=== PATIENT | female | born 1990 ===

== ENCOUNTER 2023-01-16 09:52 | Inpatient (IN) ==
[2023-01-16] MEDS ORDERED: OXYTOCIN 30 UNITS/500 ML BAG IV PRN ×2 (10:06→15:38)
[2023-01-16] MEDS ORDERED: LIDOCAINE 1% LOCAL 20 ML VIAL INFIL PRN (10:06)
[2023-01-16] MEDS: LACTATED RINGER'S 1,000 ML IV PRN ×2 (10:25→11:38)
[2023-01-16] MEDS ORDERED: SODIUM CHLORIDE 0.9% PF INJ 10 ML VIAL ONE (10:48)
[2023-01-16] MEDS ORDERED: LIDOCAINE 2%/EPINEPHRINE 1:200,000 20 ML PF ONE (10:48)
[2023-01-16] MEDS ORDERED: fentaNYL citrate PF 100 MCG/2 ML VIAL ONE (10:48)
[2023-01-16] MEDS ORDERED: ePHEDrine sulfate 50 MG/ML AMP ONE (10:48)
[2023-01-16] MEDS ORDERED: BUPIVACAINE 0.25% PF 30 ML VIAL ONE (10:48)
[2023-01-16] MEDS ORDERED: fentaNYL 2MCG/ML ROPIVACAINE 1.25MG/ML 100 ML BAG EPI ONE (10:49)
[2023-01-16 10:59] LABS: Hematocrit (blood only) 39.9 % (37.0-47.0); Hemoglobin 14.2 g/dl (12.0-16.0); Mean Corpuscular Hemoglobin 34.2 pg (25.0-34.0); Mean Corpuscular Hgb Conc 35.6 g/dL (32.0-36.0); Mean Corpuscular Volume 96.1 fL (80.0-100.0); Mean Platelet Volume 10.7 fL (9.4-12.4); Platelet Count 209 K/uL (130-400); RDW Coefficient of Variation 13.1 % (11.5-14.5); RDW Standard Deviation 46.1 fL (36.4-46.3); Red Blood Count 4.15 M/uL (4.20-5.40); White Blood Count 7.07 K/ul (4.8-10.8)
--- NOTE | 2023-01-16 11:08 | Progress Note ---
Date of Service January 16, 2023 Assessment & Plan (1) Encounter for trial of labor: Plan: Trial of labor pt Admitted from office VE; 4cm Bedside sono; VT FHR; CAT1 discussed risk of uterine rupture after c/sec pt wishes to proceeds despite risk Pt admits to Marijuana use told she will need a urine tox pt agrees to all of above admit and anticipate VD Admission and Anticipated Discharge Date Admission Date: January 16, 2023 Results & Data ([facility]) Vital Signs (Past 12 Hours) Vital Signs Temp Pulse Resp BP Pulse Ox 01/16/23 11:01 91 H 92 01/16/23 10:15 18 01/16/23 10:15 18 01/16/23 10:59 79 100 01/16/23 10:54 82 100 01/16/23 10:49 87 100 01/16/23 10:44 82 100 01/16/23 10:34 85 100 01/16/23 10:29 91 H 100 01/16/23 10:24 88 100 01/16/23 10:19 94 H 100 01/16/23 10:14 93 H 100 01/16/23 10:13 93 H 114/82 01/16/23 10:14 37.0 C 18
--- NOTE | 2023-01-16 11:09 | Anesthesiology Consultation ---
Date of Service January 16, 2023 Assessment & Plan (1) Encounter for pre-operative examination: Chart Review Chart Review: Acceptable Risk for Labor Epidural History Height/Weight Height: 5 ft 4 in Weight: 73.936 kg Allergies Allergy/AdvReac Type Severity Reaction Status Date / Time No Known Allergies Allergy Unverified 06/03/22 20:09 Medications Home Medications Medication Instructions Recorded Confirmed Last Taken prenat.vits,jorge,mus-qybl-msmrj 1 tab PO DAILY 01/16/23 01/16/23 01/15/23 Active Medications Generic Name Dose Route Start Last Admin Trade Name Freq PRN Reason Stop Dose Admin Lactated Ringer's 1,000 mls @ 125 mls/hr 01/16/23 10:06 01/16/23 10:25 Lr IV 01/18/23 10:05 999 mls/hr .Q8H PRN Administration L&D Protocol Protocol Past Medical History Medical History (Updated 01/16/23 @ 11:09 by Adriano Garcia MD) No chronic diseases present Past Surgical History Surgical History (Updated 01/16/23 @ 11:09 by Adriano Garcia MD) Hx of section Social History Smoking Status: Current every day smoker Hx Alcohol Use: No Hx Substance Use: Yes (Patient has medical card) substance use type: marijuana Last Used Substance: Days (ago) Last Used Substance Other:: 01/01/23 Physical Exam Vital Signs Last Vital Signs Temp 37.0 C 01/16/23 10:14 Pulse 91 H 01/16/23 11:01 Resp 18 01/16/23 10:15 BP 114/82 01/16/23 10:13 Pulse Ox 92 01/16/23 11:01 Testing Laboratory Results 01/16/23 10:32
[2023-01-16] MEDS ORDERED: NALOXONE HCL 1 MG in SODIUM CHLORIDE 0.9% 1000ML 1,000 ML IV PRN (11:43)
[2023-01-16] MEDS ORDERED: NALOXONE HCL 0.4 MG/1 ML VIAL/CARP IV PRN (11:43)
[2023-01-16] MEDS ORDERED: fentaNYL 2MCG/ML ROPIVACAINE 1.25MG/ML 100 ML BAG EPI PRN (11:43)
[2023-01-16] MEDS ORDERED: ONDANSETRON INJ 2 MG/ML 2 ML VIAL IV PRN (11:43)
[2023-01-16] MEDS ORDERED: ePHEDrine sulfate 50 MG/ML AMP IV PRN (11:43)
[2023-01-16 12:15] LABS: Amphetamines+Metham, Urine Neg (Neg); Barbiturates, Urine Neg (Neg); Benzodiazepine, Urine Neg (Neg); Cocaine, Urine Neg (Neg); MDMA (Ecstacy), Urine Neg (Neg); Methadone, Urine Neg (Neg); Opiate, Urine Neg (Neg); Phencyclidine, Urine Neg (Neg)
--- NOTE | 2023-01-16 13:29 | Obstetrical Progress Note ---
Date of Service January 16, 2023 Assessment & Plan (1) Hx of section: Plan: Pt doing well Epidural analgesia placed FHR; CAT1' Ctx 2-3mins VE; 8-9//-2 with bulging membrane AROM with amnio hook performed-Thick meconium pt informed anticipate VD Admission and Anticipated Discharge Date Admission Date: January 16, 2023 Results & Data ([facility]) Vital Signs (Past 12 Hours) Vital Signs Temp Pulse Resp BP Pulse Ox 01/16/23 13:24 71 100 01/16/23 13:19 74 100 01/16/23 13:14 70 100 01/16/23 11:36 18 01/16/23 11:36 18 01/16/23 11:38 18 01/16/23 11:38 18 01/16/23 11:40 18 01/16/23 11:40 18 01/16/23 11:42 18 01/16/23 11:42 18 01/16/23 11:00 18 01/16/23 11:00 18 01/16/23 13:09 75 100 01/16/23 13:06 94 H 97/59 L 01/16/23 12:59 88 98 01/16/23 13:00 92 H 87 L 01/16/23 12:54 66 99 01/16/23 12:49 68 99 01/16/23 12:50 66 97/53 L 01/16/23 12:44 67 97 01/16/23 12:39 81 97 01/16/23 12:35 67 106/57 L 01/16/23 12:34 91 H 99 01/16/23 12:29 107 H 96 01/16/23 12:24 78 98 01/16/23 12:19 98 H 100 01/16/23 12:20 99 H 103/59 L 01/16/23 12:14 104 H 100 01/16/23 12:09 102 H 99 01/16/23 12:04 99 01/16/23 12:04 100 H 01/16/23 12:03 94 H 93 01/16/23 12:04 94 H 110/55 L 01/16/23 11:59 104 H 94/53 L 99 01/16/23 11:57 104 H 97/52 L 01/16/23 11:54 110 H 100 01/16/23 11:55 85 101/59 L 01/16/23 11:53 86 102/54 L 01/16/23 11:51 112 H 98/52 L 01/16/23 11:49 92 H 100 01/16/23 11:48 109 H 100/53 L 01/16/23 11:45 98 H 18 95/50 L 01/16/23 11:44 97 H 18 100 01/16/23 11:43 99 H 94/53 L 01/16/23 11:41 105 H 105/59 L 01/16/23 11:39 70 98/55 L 99 01/16/23 11:37 80 82/44 L 01/16/23 11:35 99 H 91/48 L 01/16/23 11:34 86 18 99 01/16/23 11:33 89 01/16/23 11:33 86 107/60 94 01/16/23 11:31 84 118/71 01/16/23 11:29 82 99 01/16/23 11:24 101 H 100 01/16/23 11:19 89 99 01/16/23 11:20 106 H 92 01/16/23 11:14 88 100 01/16/23 11:09 94 H 100 01/16/23 11:04 75 100 01/16/23 11:01 91 H 92 01/16/23 10:15 18 01/16/23 10:15 18 01/16/23 10:59 79 100 01/16/23 10:54 82 100 01/16/23 10:49 87 100 01/16/23 10:44 82 100 01/16/23 10:34 85 100 01/16/23 10:29 91 H 100 01/16/23 10:24 88 100 01/16/23 10:19 94 H 100 01/16/23 10:14 93 H 100 01/16/23 10:13 37.0 C 93 H 114/82 01/16/23 10:14 37.0 C 18
[2023-01-16] MEDS ORDERED: HYDROCORTISONE ACETATE 25 MG SUPP PR PRN (15:38)
[2023-01-16] MEDS ORDERED: ACETAMINOPHEN 325 MG TAB PO PRN (15:38)
[2023-01-16] MEDS ORDERED: DIPHTHERIA/TETANUS/PERTUSSIS 0.5mL SYR/VIAL (Age 7+yrs) IM ONE (15:38)
[2023-01-16] MEDS ORDERED: METHYLERGONOVINE MALEATE 0.2 MG/ML AMP IM ONE (15:38)
[2023-01-16] MEDS ORDERED: BENZOCAINE 20% AER SPR 82.5 GM CAN EXT PRN (15:38)
[2023-01-16] MEDS ORDERED: miSOPROStoL 200 MCG TAB PR ONE (15:38)
[2023-01-16] MEDS ORDERED: bisacodyL 10 MG SUPP PR PRN (15:38)
[2023-01-16] MEDS: METHYLERGONOVINE MALEATE 0.2 MG/ML AMP ONE ×2 (15:45→18:57)
[2023-01-16 16:03] LABS: Base Excess Cord Arterial Bld -6.3 mEq/L (-9-1.8); CO2 Cord Arterial Blood 62 mmHg (39.1-73.5); HCO3 Cord Arterial Blood 23 mmol/L (19.7-28.5); Oxygen Sat Cord Arterial Blood < 60.0 % (<60); PO2 Cord Arterial Blood 19 mmHg (4.1-31.7); pH Cord Arterial Blood 7.18 (7.1-7.38)
[2023-01-16 16:04] LABS: Base Excess Cord Venous Blood -4.5 mEq/L (-7.7-1.9); Cord Venous Blood HCO3 22 mmol/L (18.4-26.8); Cord Venous Blood PCO2 43 mmHg (30.4-57.2); Cord Venous Blood PO2 29 mmHg (14.1-43.3); Cord Venous Blood pH 7.31 (7.20-7.44); O2 Saturation Cord Venous Bld < 60.0 % (<68)
[2023-01-16] MEDS ORDERED: miSOPROStoL 200 MCG TAB ONE (18:42)
[2023-01-16] MEDS: DOCUSATE SODIUM 100 MG CAP PO SCH (21:13)
[2023-01-16] MEDS: IBUPROFEN 600 MG TAB PO PRN (21:14)
[2023-01-17] MEDS: IBUPROFEN 600 MG TAB PO PRN ×3 (03:14→19:53)
--- NOTE | 2023-01-17 07:17 | Obstetrical Progress Note ---
Date of Service January 17, 2023 Assessment & Plan (1) Normal course: PPD #1 Pt doing well No complaints Continue day 31 care Subjective Ambulation: ambulating normally Voiding: no voiding problems Passing Gas:: Yes Diet Tolerance:: regular diet Lochia:: Small Feeding Type:: breast feeding Review of Systems All systems reviewed & are unremarkable except as noted in HPI & below Physical Exam Constitutional WD/WN, vitals as above well developed and well nourished Eyes PERRL, conjunctivae normal, anicteric sclerae Neck trachea midline, no thyromegaly Respiratory normal respiratory effort, lungs clear to auscultation Auscultation: no crackles, no rales and no wheezes Cardiovascular RRR, no murmur, no edema Gastrointestinal (Abdomen) normal bowel sounds, soft, nontender, no hepatosplenomegaly Uterus is below umbilicus Musculoskeletal no cyanosis or clubbing, extremities motor strength 5/5 Skin no rashes, warm and dry Neurologic patellar DTR's 2+ bilat, sensation intact Psychiatric A+Ox3, euthymic affect Genitourinary normal external appearance Results & Data ([facility]) Vital Signs (Past 12 Hours) Vital Signs Temp Pulse Resp BP Pulse Ox O2 Del Method 01/17/23 03:30 37.2 C 64 18 113/69 99 Room Air 01/16/23 23:45 36.6 C 62 16 101/65 99 Room Air
[2023-01-17 07:20] LABS: Hematocrit (blood only) 30.4 % (37.0-47.0); Hemoglobin 10.9 g/dl (12.0-16.0); Mean Corpuscular Hemoglobin 33.9 pg (25.0-34.0); Mean Corpuscular Hgb Conc 35.9 g/dL (32.0-36.0); Mean Corpuscular Volume 94.4 fL (80.0-100.0); Mean Platelet Volume 10.8 fL (9.4-12.4); Platelet Count 163 K/uL (130-400); RDW Coefficient of Variation 12.6 % (11.5-14.5); RDW Standard Deviation 43.6 fL (36.4-46.3); Red Blood Count 3.22 M/uL (4.20-5.40); White Blood Count 10.57 K/ul (4.8-10.8)
--- NOTE | 2023-01-17 08:11 | Operative Report (OR) ---
DELIVERY NOTE The patient delivered a live infant in left occiput anterior presentation. There was no nuchal cord. Infant was delivered and placed on mother's abdomen. Delayed cord clamp was performed for 1 minute . Upon artificial rupture of membrane, there was meconium. The cord appears to be meconium stained as well. After spontaneous delivery of the placenta, the placenta was noted to be meconium stained as well. Inspection of the perineum showed no laceration or tears. Estimated blood loss was 450 mL. 's Apgars 8 and 9. All instruments were removed from the vagina and accounted for x2 including sponges and retractors. The patient is in stable condition as well as baby. Job ID: [id number]
[2023-01-17] MEDS: DOCUSATE SODIUM 100 MG CAP PO SCH ×2 (08:15→21:16)
[2023-01-17] MEDS: PRENATAL VITAMIN 1 TAB PO SCH (08:16)
--- NOTE | 2023-01-17 08:57 | Anesthesia Procedure Note ---
Date of Service January 17, 2023 Anesthesia Post Epidural Note Vital Signs Vital Signs: Temp Pulse Resp BP Pulse Ox O2 Del Method 36.8 C 58 L 18 96/59 L 99 Room Air 01/17/23 08:11 01/17/23 08:11 01/17/23 08:11 01/17/23 08:11 01/17/23 03:30 01/17/23 03:30 Pain Intensity Lower Abdomen: Pain Intensity: 10 Notes Mental Status: alert / awake / arousable and participated in evaluation Nausea / Vomiting: adequately controlled Pain: adequately controlled Airway Patency, RR, SpO2: stable & adequate BP & HR: stable & adequate Hydration State: stable & adequate Neuraxial Anesthesia: was administered and sensory block resolved Anesthetic Complications: no major complications apparent and Pt Satisfied with anesthetic care Epidural: Removed without complications and With tip intact
[2023-01-17] MEDS ORDERED: HYDROCORTISONE HC 2.5% CRM 30GM TUBE EXT PRN (09:18)
[2023-01-17] MEDS ORDERED: bisacodyL 5 MG TABEC PO SCH (20:00)
[2023-01-18] MEDS: IBUPROFEN 600 MG TAB PO PRN ×2 (01:06→07:49)
[2023-01-18 06:53] LABS: Hematocrit (blood only) 30.9 % (37.0-47.0); Hemoglobin 11.1 g/dl (12.0-16.0)
[2023-01-18] MEDS: PRENATAL VITAMIN 1 TAB PO SCH (07:49)
[2023-01-18] MEDS: DOCUSATE SODIUM 100 MG CAP PO SCH (07:49)
[2023-01-18 09:42] LABS: Marijuana Quant, GCMS Urine 255 ng/mL (<5)
--- NOTE | 2023-01-18 10:10 | Obstetrical Progress Note ---
Date of Service January 18, 2023 Assessment & Plan (1) Encounter for trial of labor: discharged Subjective Ambulation: ambulating normally Voiding: no voiding problems Passing Gas:: Yes Diet Tolerance:: regular diet Lochia:: Small Feeding Type:: breast feeding Current Pain Level(1-10): 0 doing well. plans for d/c today Physical Exam Constitutional WD/WN, vitals as above Gastrointestinal (Abdomen) Inspection/Auscultation: abdomen normal to inspection Musculoskeletal Extremities: extremities normal to inspection Skin no rashes, warm and dry Neurologic patellar DTR's 2+ bilat, sensation intact Psychiatric A+Ox3, euthymic affect Results & Data ([facility]) Vital Signs (Past 12 Hours) Vital Signs Temp Pulse Resp BP Pulse Ox O2 Del Method 01/18/23 09:35 37 C 60 18 99/60 L 99 01/18/23 07:45 37 C 60 18 99/60 L 99 Room Air 01/17/23 22:50 36.8 C 56 L 20 106/70 98 Room Air Laboratory Results 01/16/23 01/16/23 01/16/23 10:06 10:32 16:01 WBC 7.07 RBC 4.15 L Hgb 14.2 Hct 39.9 MCV 96.1 MCH 34.2 H MCHC 35.6 RDW Std Deviation 46.1 RDW Coeff of Momo 13.1 Plt Count 209 MPV 10.7 Cord ABG pH 7.18 Cord ABG pCO2 62 Cord ABG pO2 19 Cord ABG HCO3 23 Cord ABG Base Excess -6.3 Cord ABG O2 Sat < 60.0 Cord VBG pH Cord VBG pCO2 Cord VBG pO2 Cord VBG HCO3 Cord VBG Base Excess Cord VBG O2 Sat Blood Gas Comments BERNARD Urine Opiates Screen Ur Methadone, Qual Urine Barbiturates Ur Phencyclidine (PCP) U Amphetamin/Meth Scrn MDMA (Ecstasy) Screen U Benzodiazepines Scrn Ur Cocaine Metabolite U Marijuana (THC) Screen U Marijuana THC Carboxy Drug Screen Comment SARS-CoV-2, RNA, NAAT NEGATIVE 01/16/23 01/16/23 01/16/23 16:01 Unknown Unknown WBC RBC Hgb Hct MCV MCH MCHC RDW Std Deviation RDW Coeff of Momo Plt Count MPV Cord ABG pH Cord ABG pCO2 Cord ABG pO2 Cord ABG HCO3 Cord ABG Base Excess Cord ABG O2 Sat Cord VBG pH 7.31 Cord VBG pCO2 43 Cord VBG pO2 29 Cord VBG HCO3 22 Cord VBG Base Excess -4.5 Cord VBG O2 Sat < 60.0 Blood Gas Comments BERNARD Urine Opiates Screen Neg Ur Methadone, Qual Neg Urine Barbiturates Neg Ur Phencyclidine (PCP) Neg U Amphetamin/Meth Scrn Neg MDMA (Ecstasy) Screen Neg U Benzodiazepines Scrn Neg Ur Cocaine Metabolite Neg U Marijuana (THC) Screen Pos H U Marijuana THC Carboxy 255 H Drug Screen Comment SEE NOTE SARS-CoV-2, RNA, NAAT 01/17/23 01/18/23 05:54 06:19 WBC 10.57 RBC 3.22 L Hgb 10.9 L D 11.1 L Hct 30.4 L 30.9 L MCV 94.4 MCH 33.9 MCHC 35.9 RDW Std Deviation 43.6 RDW Coeff of Momo 12.6 Plt Count 163 MPV 10.8 Cord ABG pH Cord ABG pCO2 Cord ABG pO2 Cord ABG HCO3 Cord ABG Base Excess Cord ABG O2 Sat Cord VBG pH Cord VBG pCO2 Cord VBG pO2 Cord VBG HCO3 Cord VBG Base Excess Cord VBG O2 Sat Blood Gas Comments Urine Opiates Screen Ur Methadone, Qual Urine Barbiturates Ur Phencyclidine (PCP) U Amphetamin/Meth Scrn MDMA (Ecstasy) Screen U Benzodiazepines Scrn Ur Cocaine Metabolite U Marijuana (THC) Screen U Marijuana THC Carboxy Drug Screen Comment SARS-CoV-2, RNA, NAAT
--- NOTE | 2023-01-23 12:38 | Coding Query ---
CODING QUERY To promote full compliance with coding requirements relating to patient care, provider participation is requested in all cases of spray worker uncertainty. Please assist us with the question(s) below: Coding Question(s): Please document weeks of gestation Physician's Respo Thank you Nany Ta Response: 39.0 weeks Principal Diagnosis: "that condition established after study, to be chiefly responsible for occasioning the admission of the patient to the hospital for care." Co-Existing Principal Diagnosis: "when two or more diagnoses equally meet the criteria for principal diagnosis as determined by the circumstances of admission, diagnostic work up, and/or therapy provided, and the Alphabetic Index, Tabular List, or another coding guideline does not provide sequencing direction, any one of the diagnoses may be sequenced first." "When the physician has documented what appears to be a current diagnosis in the body of the record, but has not included the diagnosis in the final diagnostic statement, the physician should be asked whether the diagnosis should be added." (Source [facility] 2 QTR90. p3-4) LEIGH
== END 2023-01-18 12:00 | disposition home health service (06) | DRG 806 ==
LOC: OPB 09:52 → 4S1 09:54 → 4E2 18:18

== ENCOUNTER 2024-01-08 18:29 | Inpatient (IN) ==
[2024-01-08] MEDS ORDERED: LIDOCAINE 1% LOCAL 20 ML VIAL INFIL PRN (18:55)
[2024-01-08] MEDS ORDERED: OXYTOCIN 30 UNITS/NSS 30 UNITS/500 ML BAG IV PRN (18:55)
[2024-01-08] MEDS ORDERED: DEXTROSE 50% 50 ML SYRINGE IV PRN (18:57)
[2024-01-08] MEDS ORDERED: SODIUM CHLORIDE 0.9% 1,000 ML IV PRN (18:57)
[2024-01-08] MEDS: LACTATED RINGER'S 1,000 ML IV PRN (19:00)
--- NOTE | 2024-01-08 19:07 | History & Physical Report ---
Date of Service January 08, 2024 Assessment & Plan (1) 37 weeks gestation of : Plan: Admit, routine labs, HIV, hepatitis B, hepatitis C, rubella Epidural if patient request (2) Abnormal glucose tolerance affecting , antepartum: Plan: Glucose every hour checks with insulin drip as needed A1c pending Discussed at length with patient at bedside about small head circumference and BPD with large abdominal circumference which may lead to a shoulder dystocia. Shoulder dystocia is not always predictable, and can lead to distress, injury including brachial plexus and fractures, or possible even to the . In addition to maternal injury or (3) Short interval between pregnancies affecting in third trimester, antepartum: Plan: Is aware that the risk of uterine rupture is increased due to the short interval with previous less than 1 year ago (4) Positive GBS test: Plan: Penicillin G while in labor (5) Antepartum anemia complicating in third trimester: Plan: Admission H and H pending (6) History of maternal blood transfusion, currently in third trimester: Plan: Admission type and screen pending (7) Marijuana use during : Plan: Urine toxicology on admission pending Case management consult (8) Hx of section: Plan: Patient was counseled at length for the risk of trial of labor after previous C- section that may result in a successful , versus repeat versus failed trial of labor after previous resulting in emergency . [facility] forms were signed by the patient at the bedside. She desires to proceed with trial of labor after previous at this time. Please see sign consents for more information (9) Hx successful (vaginal after ), currently : History of Present Illness Chief Complaint: Ctx Primary Care Provider: Sarah Maya PA-C Patient is a pleasant 33-year-old -0-2-3 at 37 weeks and 6 days who is dated by a 15-week ultrasound who presents to labor and delivery for worsening contractions since 6 PM. She was seen in the office today, and had a estimated weight due to abnormal glucose testing and patient has not done a 3-hour. She has also not completed a A1c and new OB labs including HIV, hepatitis B&C, rubella. Patient also notes history of marijuana want to use this , states she has a medical marijuana card. She is agreeable to all these admission labs and HIV testing and urine toxicology screen. She is aware that case management will also be consulted Patient's has been complicated by abnormal glucose tolerance test with no 3-hour confirmation testing. Patient also has a history of a previous lower transverse section with 2 successful 's since. Last was January 2023, as she desires to TOLAC if possible. She has not had a history of blood transfusion at the time of her previous C- section Antepartum anemia Short interval between pregnancies Ultrasound today confirmed vertex, MATEUSZ 22.5 cm, head circumference 1st percentile, BPD 2nd percentile and abdominal circumference 84th percentile with the estimated weight of 322 3 g 47 7 g which is 52nd percentile Allergies Allergy/AdvReac Type Severity Reaction Status Date / Time No Known Allergies Allergy Unverified 06/03/22 20:09 Home Medications Medication Instructions Recorded Confirmed Type vit no.95-ferrous 1 tab PO DAILY 01/08/24 01/08/24 History fumarate 28 mg-folic acid 800 mcg tablet () Patient History Surgical History Hx of section Social History Smoking Status: Current every day smoker Tobacco Type: Cigarettes Second Hand Exposure: No; Hx Alcohol Use: No Hx Substance Use: Yes (Patient has medical card) Last Used Substance: Days (ago) Last Used Substance Other:: 01/01/23 Preferred Language: Israeli Communication Ability: Effective Complaint Coordinator Required: No Beliefs That Will Affect Care: None marital status: Single Current Living Situation: Alone Feels Safe at Home: Yes OB History -0-2-3 x 1 x 2 SAB x 1 Therapeutic AB x 1 CABLE WIRER History See record Review of Systems All systems reviewed & are unremarkable except as noted in HPI & below Physical Exam Constitutional: WD/WN, vitals as above Respiratory: normal respiratory effort, lungs clear to auscultation Cardiovascular: RRR, no murmur, no edema Gastrointestinal (Abdomen): normal bowel sounds, soft, nontender, no hepatosplenomegaly Genitourinary: Cervix: 3 to 4 cm with a bulging bag, had not felt checked by RN Ultrasound confirmed vertex presentation at bedside Results & Data Vital Signs (Past 12 Hours) Vital Signs Temp Pulse Resp BP 01/08/24 18:43 36.8 C 18 01/08/24 18:43 104 H 120/77 Monitoring External Monitor heart tracing: Baseline 1 5155, moderate variability, variable decelerations Tocodynamometer Contractions every 1 to 4-minute
[2024-01-08 19:34] LABS: Hematocrit (blood only) 31.8 % (37.0-47.0); Hemoglobin 11.4 g/dl (12.0-16.0); Mean Corpuscular Hemoglobin 34.1 pg (25.0-34.0); Mean Corpuscular Hgb Conc 35.8 g/dL (32.0-36.0); Mean Corpuscular Volume 95.2 fL (80.0-100.0); Mean Platelet Volume 10.4 fL (9.4-12.4); Platelet Count 210 K/uL (130-400); RDW Coefficient of Variation 13.4 % (11.5-14.5); RDW Standard Deviation 46.3 fL (36.4-46.3); Red Blood Count 3.34 M/uL (4.20-5.40); White Blood Count 10.19 K/ul (4.8-10.8)
[2024-01-08] MEDS ORDERED: SODIUM CHLORIDE 0.9% PF INJ 10 ML VIAL EPI PRN (19:46)
[2024-01-08] MEDS ORDERED: ROPIVACAINE 0.5% PF 5 MG/ML 20 ML VIAL EPI PRN (19:46)
[2024-01-08] MEDS ORDERED: ePHEDrine sulfate 50 MG/ML AMP IV PRN (19:46)
[2024-01-08] MEDS ORDERED: NALBUPHINE HCL 5 MG in SYRINGE 0 ML IV PRN (19:46)
[2024-01-08] MEDS ORDERED: NALOXONE HCL 0.4 MG/1 ML VIAL/CARP IV PRN (19:46)
[2024-01-08] MEDS ORDERED: diphenhydrAMINE 50 MG/ML VIAL IV PRN (19:46)
[2024-01-08] MEDS ORDERED: NALOXONE HCL 1 MG in SODIUM CHLORIDE 0.9% 1,000 ML IV PRN (19:46)
[2024-01-08] MEDS ORDERED: fentaNYL citrate PF 100 MCG/2 ML VIAL EPI PRN (19:46)
[2024-01-08] MEDS ORDERED: BUPIVACAINE 0.25% PF 30 ML VIAL EPI PRN (19:46)
[2024-01-08] MEDS ORDERED: LIDOCAINE 2% MPF LOCAL 5 ML VIAL EPI PRN (19:46)
--- NOTE | 2024-01-08 19:46 | Anesthesiology Consultation ---
Date of Service January 08, 2024 Assessment & Plan Chart Review Chart Review: Acceptable Risk for Labor Epidural Consults Requested none History Height/Weight Height: 5 ft 4 in Weight: 76.7 kg Allergies Allergy/AdvReac Type Severity Reaction Status Date / Time No Known Allergies Allergy Unverified 06/03/22 20:09 Medications Home Medications Medication Instructions Recorded Confirmed Last Taken vit no.95-ferrous 1 tab PO DAILY 01/08/24 01/08/24 Unknown fumarate 28 mg-folic acid 800 mcg tablet () Active Medications Generic Name Dose Route Start Last Admin Trade Name Freq PRN Reason Stop Dose Admin Lactated Ringer's 1,000 mls @ 125 mls/hr 01/08/24 18:55 01/08/24 19:00 Lr IV 01/10/24 18:54 999 mls/hr .Q8H PRN Administration L&D Protocol Protocol Past Surgical History Surgical History Hx of section Social History Smoking Status: Current every day smoker Hx Alcohol Use: No Hx Substance Use: Yes (Patient has medical card) substance use type: marijuana Last Used Substance: Days (ago) Last Used Substance Other:: 01/01/23 Physical Exam Vital Signs Last Vital Signs Temp 36.8 C 01/08/24 18:43 Pulse 104 H 01/08/24 18:43 Resp 18 01/08/24 18:43 BP 120/77 01/08/24 18:43 Constitutional WD/WN, vitals as above Respiratory normal respiratory effort, lungs clear to auscultation Cardiovascular RRR, no murmur, no edema Gastrointestinal (Abdomen) normal bowel sounds, soft, nontender, no hepatosplenomegaly Testing Laboratory Results 01/08/24 19:14
[2024-01-08] MEDS: PENICILLIN GK 6 MU in DEXTROSE 5% 250 ML IV STA (19:52)
[2024-01-08 19:54] LABS: Albumin Level 3.2 gm/dl (3.4-5.0); Bilirubin,Total 0.5 mg/dl (0.2-1.0); Calcium 8.7 mg/dl (8.6-10.3); Estimated Average Glucose 97 mg/dl; Potassium 3.4 mmol/L (3.5-5.1)
[2024-01-08 20:00] LABS: BUN Creatinine Ratio 8.5 (10-20); Creatinine Clr Calc Pharmacy 134.7 ml/min; Est GFR (African American) 138.6 ml/min; Est GFR (Non-African American) 119.6 ml/min; Globulin 3.3 gm/dl (2.5-4.0); Total Protein 6.5 gm/dl (6.0-8.3)
[2024-01-08 20:04] LABS: Amphetamines+Metham, Urine Neg (Neg); Barbiturates, Urine Neg (Neg); Benzodiazepine, Urine Neg (Neg); Cocaine, Urine Neg (Neg); MDMA (Ecstacy), Urine Neg (Neg); Marijuana, Urine Pos (Neg); Methadone, Urine Neg (Neg); Opiate, Urine Neg (Neg); Phencyclidine, Urine Neg (Neg)
[2024-01-08 20:11] LABS: Rubella IgG Ab Immune (Immune); Rubella IgG Qnt 65.4 IU/mL
[2024-01-08] MEDS: fentANYL 2 MCG/ML BUPIVacaine 0.125%-NSS 100ML BAG ONE (20:11)
[2024-01-08] MEDS: LIDOCAINE 2%/EPINEPHRINE 1:200,000 20 ML PF ONE (20:11)
[2024-01-08] MEDS: ePHEDrine sulfate 50 MG/ML AMP ONE (21:31)
[2024-01-08] MEDS: fentaNYL citrate PF 100 MCG/2 ML VIAL EPI STA (21:31)
[2024-01-08] MEDS: SODIUM CHLORIDE 0.9% PF INJ 10 ML VIAL EPI STA (21:31)
[2024-01-08] MEDS: SODIUM CHLORIDE 0.9% PF INJ 10 ML VIAL ONE (21:31)
[2024-01-08] MEDS: BUPIVACAINE 0.25% PF 30 ML VIAL ONE (21:31)
[2024-01-08] MEDS: LIDOCAINE 2%/EPINEPHRINE 1:200,000 20 ML PF EPI STA (21:31)
[2024-01-08] MEDS: BUPIVACAINE 0.25% PF 30 ML VIAL EPI STA (21:31)
[2024-01-08] MEDS: fentaNYL citrate PF 100 MCG/2 ML VIAL ONE (21:31)
[2024-01-08] MEDS: DEXTROSE 5% 1,000 ML IV PRN (21:59)
[2024-01-08] MEDS: INSULIN REGULAR 250 UNITS in SODIUM CHLORIDE 0.9% 247.5 ML IV PRN (22:00)
--- NOTE | 2024-01-08 23:24 | Obstetrical Progress Note ---
Date of Service January 08, 2024 Assessment & Plan (1) 37 weeks gestation of : Plan: Anticipate vaginal delivery (2) Abnormal glucose tolerance affecting , antepartum: Plan: Glucose every hour checks with insulin drip as needed A1c pending Discussed at length with patient at bedside about small head circumference and BPD with large abdominal circumference which may lead to a shoulder dystocia. Shoulder dystocia is not always predictable, and can lead to distress, injury including brachial plexus and fractures, or possible even to the . In addition to maternal injury or (3) Short interval between pregnancies affecting in third trimester, antepartum: Plan: Is aware that the risk of uterine rupture is increased due to the short interval with previous less than 1 year ago (4) Positive GBS test: Plan: Continue IV penicillin G while in labor (5) Antepartum anemia complicating in third trimester: Plan: Admission H/H 09/15/.8% (6) History of maternal blood transfusion, currently in third trimester: (7) Marijuana use during : Plan: UDS positive for marijuana, confirmatory test pending Case management consult (8) Hx of section: Plan: Patient was counseled at length for the risk of trial of labor after previous C- section that may result in a successful , versus repeat versus failed trial of labor after previous resulting in emergency . The [facility] forms were signed by the patient at the bedside. She desires to proceed with trial of labor after previous at this time. Please see sign consents for more information IUP was placed to monitor uterine tone while in labor (9) Hx successful (vaginal after ), currently : Admission and Anticipated Discharge Date Admission Date: January 08, 2024 Subjective Patient comfortable in bed on epidural at this time. 2 friends at bedside for support. Agreeable to AROM at this time. Physical Exam Genitourinary: heart tracing: Baseline 125, moderate variability, positive accelerations no decelerations, category 1 tracing Tocometer: Contractions every 5 to 6 minutes Cervix: 5/80/-1 AROM performed with large amount of clear fluid, no cord felt, IUPC placed Results & Data Vital Signs (Past 12 Hours) Vital Signs Temp Pulse Resp BP Pulse Ox 01/08/24 23:20 98 01/08/24 23:20 78 01/08/24 23:20 112/56 L 01/08/24 23:19 93 01/08/24 23:19 100 H 01/08/24 23:15 98 01/08/24 23:15 86 01/08/24 23:10 95 01/08/24 23:10 93 H 01/08/24 23:09 91 01/08/24 23:09 92 H 01/08/24 23:05 98 01/08/24 23:05 80 01/08/24 23:05 92 H 01/08/24 23:05 103/67 01/08/24 23:00 89 L 01/08/24 23:00 90 01/08/24 22:55 96 01/08/24 22:55 78 01/08/24 22:54 94 01/08/24 22:54 101 H 01/08/24 22:50 98 01/08/24 22:50 96 H 01/08/24 22:49 87 01/08/24 22:49 99/59 L 01/08/24 22:45 98 01/08/24 22:45 88 01/08/24 22:40 95 01/08/24 22:40 91 H 01/08/24 22:36 93 01/08/24 22:36 87 01/08/24 22:35 98 01/08/24 22:35 83 01/08/24 22:34 70 01/08/24 22:34 96/51 L 01/08/24 22:30 98 01/08/24 22:30 85 01/08/24 22:25 97 01/08/24 22:25 106 H 01/08/24 22:20 97 01/08/24 22:20 90 01/08/24 22:20 95/52 L 01/08/24 22:15 98 01/08/24 22:15 81 01/08/24 22:10 98 01/08/24 22:10 73 01/08/24 22:05 97 01/08/24 22:05 84 01/08/24 22:05 82 01/08/24 22:05 98/53 L 01/08/24 22:00 98 01/08/24 22:00 78 01/08/24 21:55 97 01/08/24 21:55 80 01/08/24 21:51 88 01/08/24 21:51 90/52 L 01/08/24 21:48 18 L 01/08/24 21:48 98 H 01/08/24 21:46 88 L 01/08/24 21:46 94 H 01/08/24 21:43 69 L 01/08/24 21:43 133 H 01/08/24 21:43 85/48 L 01/08/24 21:39 91 01/08/24 21:39 90 01/08/24 21:38 89 L 01/08/24 21:38 92 H 01/08/24 21:33 81 L 01/08/24 21:33 100 H 01/08/24 21:31 92 01/08/24 21:31 98 H 01/08/24 21:28 97 01/08/24 21:28 107 H 01/08/24 21:23 97 01/08/24 21:23 97 H 01/08/24 21:19 78 01/08/24 21:19 97/53 L 01/08/24 21:18 97 01/08/24 21:18 82 01/08/24 21:17 80 01/08/24 21:17 86/54 L 01/08/24 21:13 96 01/08/24 21:13 97 H 01/08/24 21:10 94 01/08/24 21:10 98 H 01/08/24 21:08 96 01/08/24 21:08 84 01/08/24 21:05 85 01/08/24 21:05 94/52 L 01/08/24 21:03 95 01/08/24 21:03 91 H 01/08/24 21:01 93 01/08/24 21:01 91 H 01/08/24 20:58 97 01/08/24 20:58 84 01/08/24 20:53 95 01/08/24 20:53 109 H 01/08/24 20:51 95 H 01/08/24 20:51 109/53 L 01/08/24 20:48 97 01/08/24 20:48 101 H 01/08/24 20:43 97 01/08/24 20:43 101 H 01/08/24 20:38 96 01/08/24 20:38 104 H 01/08/24 20:34 88 01/08/24 20:34 94/53 L 01/08/24 20:33 97 01/08/24 20:33 92 H 01/08/24 20:31 101 H 01/08/24 20:31 96/58 L 01/08/24 20:28 96 01/08/24 20:28 110 H 01/08/24 20:28 102 H 01/08/24 20:28 96/51 L 01/08/24 20:25 93 H 01/08/24 20:25 100/57 L 01/08/24 20:22 109 H 01/08/24 20:22 98/53 L 01/08/24 20:21 100 01/08/24 20:21 104 H 01/08/24 20:19 114 H 01/08/24 20:19 103/59 L 01/08/24 20:18 93 01/08/24 20:18 92 H 01/08/24 20:16 18 01/08/24 20:16 37.0 C 18 01/08/24 20:16 98 01/08/24 20:16 97 H 01/08/24 20:16 103/55 L 01/08/24 20:13 97 H 01/08/24 20:13 104/64 01/08/24 20:11 99 01/08/24 20:11 90 01/08/24 20:10 92 H 01/08/24 20:10 112/64 01/08/24 20:06 98 01/08/24 20:06 94 H 01/08/24 20:01 98 01/08/24 20:01 95 H 01/08/24 19:56 100 01/08/24 19:56 101 H 01/08/24 18:43 36.8 C 18 01/08/24 18:43 104 H 120/77
[2024-01-09] MEDS: PENICILLIN GK 3 MU in DEXTROSE 5% 100 ML IV PRN (00:07)
[2024-01-09] MEDS: fentANYL 2 MCG/ML BUPIVacaine 0.125%-NSS 100ML BAG EPI PRN (04:00)
--- NOTE | 2024-01-09 06:50 | Obstetrical Progress Note ---
Date of Service January 09, 2024 Assessment & Plan (1) 37 weeks gestation of : Plan: Anticipate vaginal delivery (2) Abnormal glucose tolerance affecting , antepartum: Plan: Glucose every hour checks with insulin drip as needed A1c 5% on admission Discussed at length with patient at bedside about small head circumference and BPD with large abdominal circumference which may lead to a shoulder dystocia. Shoulder dystocia is not always predictable, and can lead to distress, injury including brachial plexus and fractures, or possible even to the . In addition to maternal injury or (3) Short interval between pregnancies affecting in third trimester, antepartum: Plan: Is aware that the risk of uterine rupture is increased due to the short interval with previous less than 1 year ago (4) Positive GBS test: Plan: Continue IV penicillin G while in labor (5) Antepartum anemia complicating in third trimester: Plan: Admission H/H 09/15/31.8% (6) History of maternal blood transfusion, currently in third trimester: (7) Marijuana use during : Plan: UDS positive for marijuana, confirmatory test pending Case management consult (8) Hx of section: Plan: Patient was counseled at length for the risk of trial of labor after previous C- section that may result in a successful , versus repeat versus failed trial of labor after previous resulting in emergency . The [facility] forms were signed by the patient at the bedside. She desires to proceed with trial of labor after previous at this time. Please see sign consents for more information IUP was placed to monitor uterine tone while in labor (9) Hx successful (vaginal after ), currently : Admission and Anticipated Discharge Date Admission Date: January 08, 2024 Subjective Patient has remained comfortable with epidural, no complaints at this time Physical Exam Genitourinary: heart tracing: Baseline 130, moderate variability, positive accelerations no decelerations tocometer: Contractions every 3 to 5 minutes Cervix: 7/100/-1 Results & Data Vital Signs (Past 12 Hours) Vital Signs Temp Pulse Resp BP Pulse Ox 01/09/24 06:45 97 H 98 01/09/24 06:40 77 97 01/09/24 06:35 85 97 01/09/24 06:34 78 106/67 01/09/24 06:30 78 98 01/09/24 06:25 71 97 01/09/24 06:20 65 96 01/09/24 06:19 93 H 100/62 01/09/24 06:15 69 96 01/09/24 06:10 92 H 97 01/09/24 06:05 75 97 01/09/24 06:04 76 102/63 01/09/24 06:00 75 96 01/09/24 05:55 80 96 01/09/24 05:50 79 110/71 96 01/09/24 05:45 97 H 96 01/09/24 05:40 106 H 97 01/09/24 05:39 77 92 01/09/24 05:35 74 97 01/09/24 05:34 72 109/66 01/09/24 05:30 72 97 01/09/24 05:25 68 97 01/09/24 05:20 70 109/61 97 01/09/24 05:15 72 97 01/09/24 05:10 70 97 01/09/24 05:05 66 97 01/09/24 05:04 72 101/63 01/09/24 05:00 78 97 01/09/24 04:55 70 96 01/09/24 04:50 79 96 01/09/24 04:49 70 101/66 01/09/24 04:45 76 96 01/09/24 04:40 72 97 01/09/24 04:35 89 109/68 96 01/09/24 04:30 69 96 01/09/24 04:25 73 96 01/09/24 04:20 64 96 01/09/24 04:19 83 103/62 01/09/24 04:15 67 95 01/09/24 04:10 75 96 01/09/24 04:05 76 96 01/09/24 04:04 70 103/61 01/09/24 04:00 72 96 01/09/24 03:55 36.7 C 77 18 97 01/09/24 03:50 84 96 01/09/24 03:49 88 114/70 01/09/24 03:45 104 H 98 01/09/24 03:40 77 96 01/09/24 03:35 82 95 01/09/24 03:34 86 112/72 01/09/24 03:30 97 H 96 01/09/24 03:27 84 92 01/09/24 03:25 84 97 01/09/24 03:20 100 H 97 01/09/24 03:19 73 102/65 01/09/24 03:15 73 97 01/09/24 03:10 68 96 01/09/24 03:05 68 97 01/09/24 03:04 70 97/67 L 01/09/24 03:00 70 96 01/09/24 02:55 90 96 01/09/24 02:50 96 01/09/24 02:50 71 01/09/24 02:50 71 103/60 01/09/24 02:45 73 96 01/09/24 02:40 69 96 01/09/24 02:35 67 97/61 L 96 01/09/24 02:30 66 96 01/09/24 02:25 86 97 01/09/24 02:21 81 125/74 01/09/24 02:20 96 H 97 01/09/24 02:15 83 96 01/09/24 02:10 79 96 01/09/24 02:05 37.0 C 81 18 97 01/09/24 02:04 72 100/56 L 01/09/24 02:00 75 97 01/09/24 01:55 82 96 01/09/24 01:50 74 97 01/09/24 01:49 76 97/57 L 01/09/24 01:45 76 97 01/09/24 01:40 86 97 01/09/24 01:35 67 96 01/09/24 01:34 66 75/41 L 01/09/24 01:30 71 95 01/09/24 01:25 68 95 01/09/24 01:20 68 95 01/09/24 01:19 69 83/44 L 01/09/24 01:15 87 96 01/09/24 01:10 78 96 01/09/24 01:05 74 96 01/09/24 01:04 67 80/41 L 01/09/24 01:00 79 96 01/09/24 00:55 73 96 01/09/24 00:50 76 96 01/09/24 00:49 71 86/43 L 01/09/24 00:45 75 96 01/09/24 00:40 74 97 01/09/24 00:35 77 96 01/09/24 00:34 72 86/48 L 01/09/24 00:30 73 97 01/09/24 00:25 68 97 01/09/24 00:20 72 97 01/09/24 00:19 71 84/47 L 01/09/24 00:15 72 97 01/09/24 00:10 86 98 01/09/24 00:05 95 H 97 01/09/24 00:04 36.8 C 102 H 18 97/56 L 01/09/24 00:00 76 96 01/08/24 23:55 97 01/08/24 23:55 78 01/08/24 23:50 96 01/08/24 23:50 85 01/08/24 23:49 83 01/08/24 23:49 92/53 L 01/08/24 23:45 96 01/08/24 23:45 75 01/08/24 23:40 96 01/08/24 23:40 86 01/08/24 23:35 96 01/08/24 23:35 75 01/08/24 23:34 78 01/08/24 23:34 97/53 L 01/08/24 23:30 96 01/08/24 23:30 74 01/08/24 23:26 93 01/08/24 23:26 88 01/08/24 23:25 95 01/08/24 23:25 81 01/08/24 23:20 98 01/08/24 23:20 78 01/08/24 23:20 112/56 L 01/08/24 23:19 93 01/08/24 23:19 100 H 01/08/24 23:15 98 01/08/24 23:15 86 01/08/24 23:10 95 01/08/24 23:10 93 H 01/08/24 23:09 91 01/08/24 23:09 92 H 01/08/24 23:05 98 01/08/24 23:05 80 01/08/24 23:05 92 H 01/08/24 23:05 103/67 01/08/24 23:00 89 L 01/08/24 23:00 90 01/08/24 22:55 96 01/08/24 22:55 78 01/08/24 22:54 94 01/08/24 22:54 101 H 01/08/24 22:50 98 01/08/24 22:50 96 H 01/08/24 22:49 87 01/08/24 22:49 99/59 L 01/08/24 22:45 98 01/08/24 22:45 88 01/08/24 22:40 95 01/08/24 22:40 91 H 01/08/24 22:36 93 01/08/24 22:36 87 01/08/24 22:35 98 01/08/24 22:35 83 01/08/24 22:34 70 01/08/24 22:34 96/51 L 01/08/24 22:30 98 01/08/24 22:30 85 01/08/24 22:25 97 01/08/24 22:25 106 H 01/08/24 22:20 97 01/08/24 22:20 90 01/08/24 22:20 95/52 L 01/08/24 22:15 98 01/08/24 22:15 81 01/08/24 22:10 98 01/08/24 22:10 73 01/08/24 22:05 97 01/08/24 22:05 84 01/08/24 22:05 82 01/08/24 22:05 98/53 L 01/08/24 22:00 98 01/08/24 22:00 78 01/08/24 21:55 97 01/08/24 21:55 80 01/08/24 21:51 88 01/08/24 21:51 90/52 L 01/08/24 21:48 18 L 01/08/24 21:48 98 H 01/08/24 21:46 88 L 01/08/24 21:46 94 H 01/08/24 21:43 69 L 01/08/24 21:43 133 H 01/08/24 21:43 85/48 L 01/08/24 21:39 91 01/08/24 21:39 90 01/08/24 21:38 89 L 01/08/24 21:38 92 H 01/08/24 21:33 81 L 01/08/24 21:33 100 H 01/08/24 21:31 92 01/08/24 21:31 98 H 01/08/24 21:28 97 02/27/24 21:28 107 H 01/08/24 21:23 97 01/08/24 21:23 97 H 01/08/24 21:19 78 01/08/24 21:19 97/53 L 01/08/24 21:18 97 01/08/24 21:18 82 01/08/24 21:17 80 01/08/24 21:17 86/54 L 01/08/24 21:13 96 01/08/24 21:13 97 H 01/08/24 21:10 94 01/08/24 21:10 98 H 01/08/24 21:08 96 01/08/24 21:08 84 01/08/24 21:05 85 01/08/24 21:05 94/52 L 01/08/24 21:03 95 01/08/24 21:03 91 H 01/08/24 21:01 93 01/08/24 21:01 91 H 01/08/24 20:58 97 01/08/24 20:58 84 01/08/24 20:53 95 01/08/24 20:53 109 H 01/08/24 20:51 95 H 01/08/24 20:51 109/53 L 01/08/24 20:48 97 01/08/24 20:48 101 H 01/08/24 20:43 97 01/08/24 20:43 101 H 01/08/24 20:38 96 01/08/24 20:38 104 H 01/08/24 20:34 88 01/08/24 20:34 94/53 L 01/08/24 20:33 97 01/08/24 20:33 92 H 01/08/24 20:31 101 H 01/08/24 20:31 96/58 L 01/08/24 20:28 96 01/08/24 20:28 110 H 01/08/24 20:28 102 H 01/08/24 20:28 96/51 L 01/08/24 20:25 93 H 01/08/24 20:25 100/57 L 01/08/24 20:22 109 H 01/08/24 20:22 98/53 L 01/08/24 20:21 100 01/08/24 20:21 104 H 01/08/24 20:19 114 H 01/08/24 20:19 103/59 L 01/08/24 20:18 93 01/08/24 20:18 92 H 01/08/24 20:16 18 01/08/24 20:16 37.0 C 18 01/08/24 20:16 98 01/08/24 20:16 97 H 01/08/24 20:16 103/55 L 01/08/24 20:13 97 H 01/08/24 20:13 104/64 01/08/24 20:11 99 01/08/24 20:11 90 01/08/24 20:10 92 H 01/08/24 20:10 112/64 01/08/24 20:06 98 01/08/24 20:06 94 H 01/08/24 20:01 98 01/08/24 20:01 95 H 01/08/24 19:56 100 01/08/24 19:56 101 H
[2024-01-09] MEDS: ONDANSETRON INJ 2 MG/ML 2 ML VIAL IV PRN (07:29)
[2024-01-09] MEDS: OXYTOCIN 30 UNITS/NSS 30 UNITS/500 ML BAG IV PRN (08:20)
[2024-01-09] MEDS ORDERED: bisacodyL 10 MG SUPP PR PRN (08:52)
[2024-01-09] MEDS ORDERED: ACETAMINOPHEN 325 MG TAB PO PRN (08:52)
[2024-01-09] MEDS ORDERED: DIPHTHER/TETAN/PERTUS Vaccine (Tdap, Adol/Adult) 0.5mL IM ONE (08:52)
[2024-01-09] MEDS ORDERED: HYDROCORTISONE ACETATE 25 MG SUPP PR PRN (08:52)
--- NOTE | 2024-01-09 08:52 | Delivery Summary ---
Vaginal Delivery Summary Date of Service January 09, 2024 Vaginal Delivery Summary () over intact perineum with nuchal cord x1 reduced at delivery of head with delayed cord clamping and Apgars 8/9 weight pending. Cord blood obtained followed by spontaneous delivery of intact placenta. No tears. EBL 100 ml. Final sponge and instrument count are correct. Mom and baby stable.
[2024-01-09] MEDS ORDERED: PRENATAL VITAMIN 1 TAB PO SCH (09:00)
--- NOTE | 2024-01-09 09:20 | Anesthesia Procedure Note ---
Date of Service January 09, 2024 Anesthesia Post Epidural Note Vital Signs Vital Signs: Temp Pulse Resp BP Pulse Ox 36.9 C 69 18 104/65 98 01/09/24 07:33 01/09/24 09:15 01/09/24 07:33 01/09/24 09:15 01/09/24 08:10 Notes Mental Status: alert / awake / arousable and participated in evaluation Patient Amnestic to Procedure: No Nausea / Vomiting: adequately controlled Pain: adequately controlled Airway Patency, RR, SpO2: stable & adequate BP & HR: stable & adequate Hydration State: stable & adequate Neuraxial Anesthesia: was administered and sensory block is resolving Anesthetic Complications: no major complications apparent and Pt Satisfied with anesthetic care Epidural: Removed without complications and With tip intact
[2024-01-09] MEDS: IBUPROFEN 600 MG TAB PO PRN (11:43)
[2024-01-09] MEDS: BENZOCAINE 20% SPRY 85 APPLN/85 GM CAN EXT PRN (11:43)
--- OUTSIDE RECORDS SUMMARY | 2024-01-09 12:30 | External Medical Summary | Summary of Care ---
Author Name Unknown Organization [facility] Address [address] [place] [address] Phone [phone] Care Team Providers Care Computer Technical Support Specialist Name Role Phone Coretta June Primary Care Provider Encounter Details Date Type Department Care Team (Late st Contact Info) Description 11/27/2023 Orders Only PATIENT PORTAL DO NOT DELETE THIS DEPT USED BY JAYLAN JAUREGUI [id number] Allergies No known active allergiesdocumented as of this encounter (statuses as of 11/27/2023) Medications Medication Sig Dispensed Refills Start Date End Date Status Plus 27-1 MG Oral TabletIndications:H/O section Take 1 Tablet by mouth in the morning. 100 Tablet 3 01/10/2023 Active Iron-Vitamin C 65-125 MG Oral Tablet (Vitron C)Indications:Antepar adan anemia complicating Take 1 Tablet by mouth in the morning and 1 Tablet at noon and 1 Tablet before bedtime. 90 Tablet 2 11/23/2023 Active OneTouch Verio w/Device KitIndications:Abnorm al GTT (glucose tolerance test) Use as directed. Test blood sugar 4 times a day 1 Kit 0 11/23/2023 Active OneTouch Delica Lancets 33GIndications:Abnorm al GTT (glucose tolerance test) Test blood sugar 4 times a day 100 Each 2 11/23/2023 Active OneTouch Verio In Vitro Strip (Glucose Blood)Indications:Abn ormal GTT (glucose tolerance test) Test blood sugar 4 times a day 100 Strip 2 11/23/2023 Active documented as of this encounter (statuses as of 11/27/2023) Active Problems Problem Noted Date Diagnosed Date Antepartum anemia complicating 024 Overview: Hgb 10.7 at 31 wks, iron TID, repeat CBC 34-35 wks Short interval between pregn ancies complicating , antepartum 11/21/2023 Overview: Last delivery 01/2023 Marijuana use during 11/21/2023 Overview: Counseled on safety in and involvement of CYS with +UDS History of 11/21/2023 Health counseling 08/06/2023 Overview: Problem Action Taken Date entered Entered by Date resolved Headache Increase fluids(non-caffeinated) 08/06/2023 Linsey Barr RN 08/06/2023 Problem Action Taken Date entered Entered by Date resolved Depression Discuss options with Provider 08/06/2023 Linsey Barr RN 08/06/2023 Problem Action Taken Date entered Entered by Date resolved Need for food assistance referred to [facility] and local food [employer] 08/06/2023 Linsey Barr RN 08/06/2023 Problem Action Taken Date entered Entered by Date resolved Current needs or questions Patient denies having any current needs or questions 09/07/2023 Linsey Barr RN 09/07/2023 Problem Action Taken Date entered Entered by Date resolved Non-compliant with lab work Reinforce importance of lab values for mom and baby 10/08/2023 Linsey Barr RN 10/08/2023 Problem Action Taken Date entered Entered by Date resolved Current needs or questions Patient denies having any current needs or questions 11/21/2023 Linsey Barr RN 11/21/2023 Food insecurity 03/19/2023 Overview: Per [facility] Protocol Cannabis abuse 03/01/2023 Encounter for supervision of other normal , unspecified trimester 07/04/2022 H/O section 07/04/2022 Overview: Desires TOLAC. At NOB she states she is considering home . Reports blood transfusion following c/s. Unclear as to why. Second she reports as uncomplicated . Tobacco use Estimated Date of Delivery Comme nts Yes 01/23/2024 Based on Ultraso und documented as of this encounter (statuses as of 11/27/2023) Resolved Problems Problem Noted Date Diagnosed Date Resolved Date Positive test 07/17/202311/12 Abnormal glucose tolerance i n mother complicating 01/03/2023 01/16/2023 Overview: Failed 1 hour. Needs 3 hour gtt. Patient has been counseled on increased maternal risk including macrosomia and stillbirth. Has not yet completed as of 37 weeks. Agreeable to home testing. Medical marijuana use 07/04/20222022 Overview: For mental issues Food insecurity 02/20/2022 09/28/2022 Overview: Per [facility] Protocol documented as of this encounter (statuses as of 11/27/2023) Immunizations Name Administration Dates Next Due TDAP (age 10 and older)(Boostrix) 12/11/2022, documented as of this encounter Social History Tobacco Use Types Packs/Day Years Used Date Smoking Tobacco: Former Cigarettes 0.3 5 Smokeless Tobacco: Never Alcohol Use Standard Drinks/Week Comments Not Currently 0 (1 standard drink = 0.6 oz pur e alcohol) occ. PHQ-2 Answer Date Recorded PHQ Adult Total Score 2 01/27/2022 Hunger Vital Sign Answer Date Recorded Within the past 12 months, y ou worried that your food would run out before you got the money to buy more. Patient refused Within the past 12 months, t he food you bought just didn't last and you didn't have money to get more. Sometimes true Roscoe Depression Scale Answer Date Recorded Roscoe Depression Scale Total 15 08/06/2023 The thought of harming myself has occurred to me . Never 08/06/2023 Estimated Date of Delivery Comme nts Yes 01/23/2024 Based on Ultraso und Sex and Gender Information Value Date Recorded Sex Assigned at Female 07/04/2022 10:38 AM EDT Gender Identity Choose not to disclose 10:38 AM EDT Sexual Orientation Choose not to disclose 2021 10:38 AM EDT Job Start Date Occupation Industry Not on file Not on file Not on file documented as of this encounter Plan of Treatment Upcoming Encounters Date Type Department Care Team (Late st Contact Info) Description 12/04/2023 8:30 AM EST Office Visit Gynecology/Obstetrics Gabi Allred [address] [place] [address] Becky Murphy CRNP [address] [place] [address] Nurse [facility] Return Luciana [address] [place] [address] 12/17/2023 2:30 PM EST Office Visit Gynecology/Obstetrics Gabi Allred [address] [place] [address] Antonio Blanton MD [address] [place] [address] Health Maintenance Due Date Last Done Comments Hepatitis B (1 of 3 - 3-dose series) 1989 COVID-19 Vaccine (#1) 05/11/1990 HPV/Co-Test 2019 Depression Screening 01/27/2023 01/27/2022 Influenza Vaccine (FLU shot) (#1) 2023 Cervical Cancer Screening 01/31/2025 Pap Smear 01/31/2025 01/31/2022 DTaP,Tdap,and Td Vaccines (3 - Td or Tdap) 12/11/2032 12/11/2022, 01/27/2022 GARDASIL-HPV IMMUNIZATION SERIES Aged Out No longer eligible b ased on patient's age to complete this topic MENINGOCOCCAL (MENACTRA/MENVEO) Aged Out No longer eligible b ased on patient's age to complete this topic Pneumococcal Vaccine: Pediatrics (0 to 5 Years) and At-Risk Patients (6 to 64 Years) Aged Out No longer eligible b ased on patient's age to complete this topic documented as of this encounter Medical Devices Not on filedocumented as of this encounter Care Teams Computer Technical Support Specialist Relationship Specialty Start Date End Date Coretta June CRNP [address] [place] [address] PCP - General Nurse Practitioner 01/27/22 documented as of this encounter
--- OUTSIDE RECORDS SUMMARY | 2024-01-09 12:30 | External Medical Summary | Summary of Care ---
Author Name Unknown Organization [facility] Address [address] [place] [address] Phone [phone] Care Team Providers Care Industrial Relations Worker Name Role Phone Coretta June Primary Care Provider Reason for Visit * Reason Comments Return Visit Encounter Details Date Type Department Care Team (Late st Contact Info) Description 11/21/2023 8:15 AM EST Office Visit Gynecology/Obstetri nataly Allred [address] [place] [address] Becky Murphy CRNP [address] [place] [address] Nurse Julien [facility] Return Luciana [address] [place] [address] Encounter for supervision of other normal , unspecified trimester*; H/O section; Short interval between pregnancies complicating , antepartum; Marijuana use during ; History of Allergies No known active allergiesdocumented as of this encounter (statuses as of 11/21/2023) Medications Medication Sig Dispensed Refills Start Date End Date Status Plus 27-1 MG Oral TabletIndications :H/O section Take 1 Tablet by mouth in the morning. 100 Tablet 3 01/10/2023 Active Ondansetron HCl 4 MG Oral Tablet Take 1 Tablet by mouth every 12 hours as needed for Nausea. 30 Tablet 0 07/17/2023 11/21/2023 Discontinued documented as of this encounter (statuses as of 11/21/2023) Active Problems Problem Noted Date Diagnosed Date Short interval between pregn ancies complicating , [...] resolved Need for food assistance referred to [facility] and local [employer] 08/06/2023 Linsey Barr RN 08/06/2023 Problem Action [...] RN 11/21/2023 Food insecurity 03/19/2023 Overview: Per [facility] Protocol Cannabis abuse 03/01/2023 Encounter for [...] as of this encounter (statuses as of 11/21/2023) Resolved Problems Problem Noted Date Diagnosed Date [...] as of this encounter (statuses as of 11/21/2023) Immunizations Name Administration Dates Next Due TDAP [...] have money to get more. Sometimes true Ruffin Depression Scale Answer Date Recorded Ruffin Depression Scale Total 15 08/06/2023 The thought [...] on file documented as of this encounter Last Filed Vital Signs Vital Sign Reading Time Taken Comments Blood Pressure 106/60 11/21/2023 8:08 AM EST Pulse - - Temperature - - Respiratory Rate - - Oxygen Saturation - - Inhaled Oxygen Concentration - - Weight 74.4 kg (164 lb) 11/21/2023 8:08 AM EST Height - - Body Mass Index 29.05 09/07/2023 9:41 AM EDT documented in this encounter Progress Notes * Nelida Anderson LPN - 11/21/2023 8:09 AM EST 31w0d Denies vaginal bleeding/rom + movement Gtt today * Becky Murphy CRNP - 11/21/2023 8:03 AM EST 31w0d + movement. No regular ctx, bleeding/leaking. +round ligament pain, discussed. Recommend RSV vaccine in : nursing to get insurance coverage info, discussed timing. +nausea, no relief with Zofran. States it improved when she ate a cannabis cookie. Advised against use of cannabis in any form in - possible increased risk of delivery, SGA infant, usp neuro/developmental effects. Discussed availability of pharmaceutical options with better safety profiles in , she declines. She is aware that a UDS is done on labor and delivery, and that any + result would be reported to CYS. Considering Nexplanon . Unsure if she wants to breast or formula feed. Has not done NOB labs, completing GTT today - discussed importance of completing all lab work today. Schedule an upcoming appt w/MD to discuss delivery. 2 week return DELMIS Friend documented in this encounter Nursing Notes * Linsey Barr RN - 11/21/2023 10:57 AM EST Patient seen by [facility] Entry Level Marketing Assistant. Patient denies any questions or concerns. documented in this encounter Plan of Treatment Upcoming Encounters Date Type Department Care Team (Late st Contact Info) Description 12/04/2023 8:30 AM EST Office Visit Gynecology/Obstetrics Gabi [facility] [address] [place] [address] Becky Murphy CRNP [address] [place] [address] Nurse [facility] [address] [place] [address] 12/17/2023 2:30 PM EST Office Visit Gynecology/Obstetrics Gabi [facility] [address] [place] [address] Antonio Blanton MD [address] [place] [address] Health Maintenance Due Date Last Done Comments [...] Not on filedocumented as of this encounter Visit Diagnoses Diagnosis Encounter for supervision of other normal , unspecified trimester- Primary H/O section Other postprocedural status Short interval between pregnancies complicating , antepartum Supervision of other high-risk Marijuana use during History of Personal history of other genital system and obstetric disorders documented in this encounter Care Teams Industrial Relations Worker Relationship Specialty Start Date End Date Coretta June CRNP [address] [place] [address] PCP - General Nurse Practitioner 01/27/22 documented as of this encounter
--- OUTSIDE RECORDS SUMMARY | 2024-01-09 12:30 | External Medical Summary | Summary of Care ---
Author Name Unknown Organization [facility] Address [address] [place] [address] Phone [phone] Care Team Providers Care Mortgage Processing Clerk Name Role Phone Coretta June Primary Care Provider Reason for Visit * Reason Comments [facility] Return Encounter Details Date Type Department Care Team (Late st Contact Info) Description 12/17/2023 2:30 PM EST Office Visit Gynecology/Obstetric [facility] [address] [place] [address] Antonio Blanton MD [address] [place] [address] Encounter for supervision of other normal , unspecified trimester*; H/O section; Short interval between pregnancies complicating , antepartum; Marijuana use during ; History of ; Antepartum anemia complicating Allergies No known active allergiesdocumented as of this encounter (statuses as of 12/17/2023) Medications Medication Sig Dispensed Refills Start Date End Date Status Plus 27-1 MG Oral TabletIndications: H/O section Take 1 Tablet by mouth in the morning. 100 Tablet 3 01/10/2023 Active OneTouch Verio w/Device KitIndications:Abn ormal GTT (glucose tolerance test) Use as directed. Test blood sugar 4 times a day 1 Kit 0 11/23/2023 Active Additional Information Patient not taking.Reported on 12/05/2023 OneTouch Delica Lancets 33GIndications:Abn ormal GTT (glucose tolerance test) Test blood sugar 4 times a day 100 Each 2 11/23/2023 Active Additional Information Patient not taking.Reported on 12/05/2023 OneTouch Verio In Vitro Strip (Glucose Blood)Indications: Abnormal GTT (glucose tolerance test) Test blood sugar 4 times a day 100 Strip 2 11/23/2023 Active Additional Information Patient not taking.Reported on 12/05/2023 Iron-Vitamin C 65-125 MG Oral Tablet (Vitron C)Indications:Ante anemia complicating Take 1 Tablet by mouth in the morning and 1 Tablet at noon and 1 Tablet before bedtime. 120 Tablet 2 12/17/2023 Active Iron-Vitamin C 65-125 MG Oral Tablet (Vitron C)Indications:Ante anemia complicating Take 1 Tablet by mouth in the morning and 1 Tablet at noon and 1 Tablet before bedtime. 90 Tablet 2 11/23/2023 4 Discontinue d(Refill) documented as of this encounter (statuses as of 12/17/2023) Active Problems Problem Noted Date Diagnosed Date [...] resolved Need for food assistance referred to [facility] and local food [employer] 08/06/2023 Linsey Barr RN 08/06/2023 Problem Action [...] RN 11/21/2023 Food insecurity 03/19/2023 Overview: Per [facility] Protocol Cannabis abuse 03/01/2023 Encounter for supervision of other normal , unspecified trimester 07/04/2022 H/O section 07/04/2022 Overview: Desires TOLAC. At NO she states she is considering home . Reports blood transfusion following c/s. Unclear as to why. Second she reports as uncomplicated . Tobacco use Estimated Date of Delivery Comme nts Yes 01/23/2024 Based on Ultraso und documented as of this encounter (statuses as of 12/17/2023) Resolved Problems Problem Noted Date Diagnosed Date [...] issues Food insecurity 02/20/2022 09/28/2022 Overview: Per [facility] Protocol documented as of this encounter (statuses as of 12/17/2023) Immunizations Name Administration Dates Next Due TDAP (age 10 and older)(Boostrix) 12/05/2023,,01/27/2022 documented as of this encounter Social History [...] have money to get more. Sometimes true [place] Depression Scale Answer Date Recorded [place] Depression Scale Total 15 08/06/2023 The thought [...] Sign Reading Time Taken Comments Blood Pressure 92/54 12/17/2023 2:37 PM EST Pulse - - Temperature - - Respiratory Rate - - Oxygen Saturation - - Inhaled Oxygen Concentration - - Weight 73.5 kg (162 lb) 12/17/2023 2:37 PM EST Height 160 cm (5' 3") 12/17/2023 2:37 PM EST Body Mass Index 28.7 12/17/2023 2:37 PM EST documented in this encounter Progress Notes * Antonio Blanton MD - 12/17/2023 2:55 PM EST F/u from last visit Pt has still not done labs Plan Sent to lab Growth scan >38 weeks Discussed c/sec if pt is LGA because of unknown DM status documented in this encounter Nursing Notes * Niecy Rinaldi LPN - 12/17/2023 2:52 PM EST 34w5d Was not able to get RSV last visit, or complete labs. May be able to stop at the lab later this week. Inconsistently checks bsgs but does not have readings. Would like iron sent to pharmacy. documented in this encounter Plan of Treatment Upcoming Encounters Date Type Department Care Team (Late st Contact Info) Description 12/31/2023 3:00 PM EST Office Visit Gynecology/Obstetrics [facility] [address] [place], [place] [address] Antonio Blanton MD [address] [place] [address] Nurse Chalino [facility] Return Luciana [address] [place] [address] 01/08/2024 8:30 AM EST Office Visit Gynecology/Obstetrics [facility] [address] [place] [address] Antonio Blanton MD [address] [place] [address] Nurse Chalino [facility] Return Luciana [address] [place] [address] 01/18/2024 2:15 PM EST Office Visit Gynecology/Obstetrics [facility] [address] [place] [address] Lashawn Interiano CRNP [address] [place] [address] Nurse Chalino [facility] Return Luciana [address] [place] [address] 01/21/2024 9:15 AM EDT Office Visit Gynecology/Obstetrics [facility] [address] [place] [address] Spohia Prater, SIA [address] [facility] [place] [address] Nurse Chalino [facility] Return Luciana [address] [place] [address] Health Maintenance Due Date Last Done Comments Hepatitis B (1 of 3 - 3-dose series) 1989 COVID-19 Vaccine (#1) 05/11/1990 HPV/Co-Test 2019 Depression Screening 01/27/2023 01/27/2022 Influenza Vaccine (FLU shot) (#1) 2023 Cervical Cancer Screening 01/31/2025 Pap Smear 01/31/2025 01/31/2022 DTaP,Tdap,and Td Vaccines (4 - Td or Tdap) 12/05/2033 12/05/2023, 12/11/2022, 01/27/2022 GARDASIL-HPV IMMUNIZATION SERIES Aged Out [...] of other genital system and obstetric disorders Antepartum anemia complicating Anemia, antepartum documented in this encounter Care Teams Mortgage Processing Clerk Relationship Specialty Start Date End Date Coretta Jnue CRNP [address] [place] [address] PCP - General Nurse Practitioner 01/27/22 documented as of this encounter
--- OUTSIDE RECORDS SUMMARY | 2024-01-09 12:30 | External Medical Summary | Summary of Care ---
Author Name Unknown Organization [facility] Address [address] [place] [address] Phone [phone] Care Team Providers Care Tile Setter Supervisor Name Role Phone Coretta June Primary Care Provider Reason for Visit * Reason Comments [facility] Return Encounter Details Date Type Department Care Team (Late st Contact Info) Description 12/05/2023 9:30 AM EST Office Visit Gynecology/Obstetri nataly Allred [address] [place] [address] Antonio Blanton MD [address] [place] [address] Nurse Chalino [facility] Return Luciana [address] [place] [address] Encounter for supervision of other normal , unspecified trimester*; H/O section; Short interval between pregnancies complicating , antepartum; Marijuana use during ; History of ; Antepartum anemia complicating Allergies No known active allergiesdocumented as of this encounter (statuses as of 12/05/2023) Medications Medication Sig Dispensed Refills Start Date End Date Status Plus 27-1 MG Oral TabletIndications:H /O section Take 1 Tablet by mouth in the morning. 100 Tablet 3 01/10/2023 Active Iron-Vitamin C 65-125 MG Oral Tablet (Vitron C)Indications:Antep artum anemia complicating Take 1 Tablet by mouth in the morning and 1 Tablet at noon and 1 Tablet before bedtime. 90 Tablet 2 11/23/2023 Active Additional Information Patient not taking.Reported on 12/05/2023 OneTouch Verio w/Device KitIndications:Abno rmal GTT (glucose tolerance test) Use as directed. Test blood sugar 4 times a day 1 Kit 0 11/23/2023 Active Additional Information Patient not taking.Reported on 12/05/2023 OneTouch Delica Lancets 33GIndications:Abno rmal GTT (glucose tolerance test) Test blood sugar 4 times a day 100 Each 2 11/23/2023 Active Additional Information Patient not taking.Reported on 12/05/2023 OneTouch Verio In Vitro Strip (Glucose Blood)Indications:A bnormal GTT (glucose tolerance test) Test blood sugar 4 times a day 100 Strip 2 11/23/2023 Active Additional Information Patient not taking.Reported on 12/05/2023 Abrysvo 120 MCG/0.5ML Intramuscular Solution Reconstituted (RSV Pre-Fusion F A&B Vac Rcmb) Inject 0.5 mL into a large muscle once for 1 dose. 0.5 mL 0 12/05/2023 12/05/2023 Active documented as of this encounter (statuses as of 12/05/2023) Active Problems Problem Noted Date Diagnosed Date [...] resolved Need for food assistance referred to [facility] and local food [employer] 08/06/2023 Linsey [...] RN 11/21/2023 Food insecurity 03/19/2023 Overview: Per [facility] Protocol Cannabis abuse 03/01/2023 Encounter for [...] as of this encounter (statuses as of 12/05/2023) Resolved Problems Problem Noted Date Diagnosed Date [...] as of this encounter (statuses as of 12/05/2023) Immunizations Name Administration Dates Next Due TDAP [...] have money to get more. Sometimes true [place] Depression Scale Answer Date Recorded [place] Depression Scale Total 15 08/06/2023 The thought [...] Sign Reading Time Taken Comments Blood Pressure 96/50 12/05/2023 9:38 AM EST Pulse - - Temperature - - Respiratory Rate - - Oxygen Saturation - - Inhaled Oxygen Concentration - - Weight 73.5 kg (162 lb) 12/05/2023 9:38 AM EST Height 160 cm (5' 3") 12/05/2023 9:38 AM EST Body Mass Index 28.7 12/05/2023 9:38 AM EST documented in this encounter Progress Notes * Antonio Blanton MD - 12/05/2023 10:13 AM EST Pt doing well Noncompliant pt labs still not done Discussed significance of the labs with pt GDMA1 - Pt not doing FS as recommended Hgb A1C added to labs documented in this encounter Nursing Notes * Niecy Rinaldi LPN - 12/05/2023 10:00 AM EST 33w0d documented in this encounter Plan of Treatment Upcoming Encounters Date Type Department Care Team (Late st Contact Info) Description 12/17/2023 2:30 PM EST Office Visit Gynecology/Obstetrics [facility] [address] [place] [address] Antonio Blanton MD [address] [place] [address] Scheduled Orders Name Type Priority Associated Diagnoses Orde r Schedule HEMOGLOBIN A1C Lab Routine Encounter for supervision of other normal , unspecified trimester H/O section Short interval between pregnancies complicating , antepartum Marijuana use during History of Antepartum anemia complicating Expected: 12/05/2023, Expires: 12/05/2024 Health Maintenance Due Date Last Done Comments [...] antepartum documented in this encounter Care Teams Tile Setter Supervisor Relationship Specialty Start Date End Date Coretta June CRNP [address] [place] [address] PCP - General Nurse Practitioner 01/27/22 documented as of this encounter
--- OUTSIDE RECORDS SUMMARY | 2024-01-09 12:30 | External Medical Summary ---
Author Name Unknown Address Unknown Organization K01:[facility] [place] [address] [facility] [address] Laboratory Report Ordering Provider Test Date Status SARAHI MUNROE 12/31/2023 15:45:56 Final Observation Date Value Abnormality Reference (Units ) Status Streptococcus agalactiae DNA [Presence] in Specimen by DEYVI with probe detection 12/31/2023 15:45:56 Positive Abnormal Negative Final Group B Streptococcus detect ed by culture-enhanced PCR (amplified probe).
The collection of vaginal/rectal swab specimen combinations (FDA approved specimen type) is optimal for the detection of Group B Streptococcus. Single source collection (vaginal only or rectal only) or alternate specimen sources may lead to false negative results. Performing Location [facility] [place] [address] [place] [address]
--- OUTSIDE RECORDS SUMMARY | 2024-01-09 12:30 | External Medical Summary | Summary of Care ---
Author Name Unknown Organization [facility] Address [address] [place] [address] Phone [phone] Care Team Providers Care Sales Inspector Name Role Phone Coretta June Primary Care Provider Reason for Visit * Reason Comments Return Visit Encounter Details Date Type Department Care Team (Late st Contact Info) Description 11/21/2023 8:15 AM EST Office Visit Gynecology/Obstetri nat[facility] Allred [address] [place] [address] Becky Murphy CRNP [address] [place] [address] Nurse Julien [facility] Return Luciana [address] [place] [address] Encounter for supervision of other normal , [...] resolved Need for food assistance referred to [facility] and local food [employer] 08/06/2023 Linsey Barr RN 08/06/2023 Problem Action Taken Date entered Entered by Date resolved Current needs or questions Patient denies having any current needs or questions 09/07/2023 Linsey Barr RN 09/07/2023 Problem Action Taken Date entered Entered by Date resolved Non-compliant with lab work Reinforce importance of lab values for mom and baby 10/08/2023 Linsey Barr RN 10/08/2023 Food insecurity 03/19/2023 Overview: Per [facility] Protocol Cannabis abuse 03/01/2023 Encounter for [...] have money to get more. Sometimes true [place] Depression Scale Answer Date Recorded [place] Depression Scale Total 15 08/06/2023 The thought [...] - possible increased risk of delivery, SGA , long term care administrator neuro/developmental effects. Discussed availability of pharmaceutical options [...] return DELMIS Friend documented in this encounter Plan of Treatment Upcoming Encounters Date Type Department Care Team (Late st Contact Info) Description 12/04/2023 8:30 AM EST Office Visit Gynecology/Obstetrics [facility] [address] [place] [address] Becky Murphy CRNP [address] [place] [address] Nurse Chalino [facility] Return Luciana [address] [place] [address] 12/17/2023 2:30 PM EST Office Visit Gynecology/Obstetrics [facility] [address] [place] [address] Antonio Blanton MD [address] [place] [address] Health Maintenance Due Date Last Done Comments [...] disorders documented in this encounter Care Teams Sales Inspector Relationship Specialty Start Date End Date Coretta June CRNP [address] [place] [address] PCP - General Nurse Practitioner 01/27/22 documented as of this encounter
--- OUTSIDE RECORDS SUMMARY | 2024-01-09 12:30 | External Medical Summary | Summary of Care ---
Author Name Unknown Organization [facility] Address [address] [place] [address] Phone [phone] Care Team Providers Care Plant Engineer Name Role Phone Coretta June Primary Care Provider Reason for Visit * Reason Onset Date Comments Test Results 11/21/2023 Encounter Details Date Type Department Care Team (Late st Contact Info) Description 11/21/2023 Telephone Gynecology/Obstetrics [facility] [address] [facility] [place] [address] Lashawn Interiano CRNP [address] [facility] [address] Test Results Allergies No known active allergiesdocumented as of this encounter (statuses as of 11/29/2023) Medications Medication Sig Dispensed Refills Start Date [...] as of this encounter (statuses as of 11/29/2023) Active Problems Problem Noted Date Diagnosed Date [...] Need for food assistance referred to [facility] and local food [place] 08/06/2023 Linsey Barr [...] as of this encounter (statuses as of 11/29/2023) Resolved Problems Problem Noted Date Diagnosed Date [...] issues Food insecurity 02/20/2022 09/28/2022 Overview: Per [facility] Protocol documented as of this encounter (statuses as of 11/29/2023) Immunizations Name Administration Dates Next Due TDAP [...] have money to get more. Sometimes true 04/ [place] Depression Scale Answer Date Recorded [place] Depression Scale Total 15 08/06/2023 The thought [...] on file documented as of this encounter Miscellaneous Notes * Telephone Encounter - Lashawn Interiano CRNP - 11/23/2023 10:34 AM EST Supplies sent. * Telephone Encounter - Kristina Hilliard LPN - 11/23/2023 9:53 AM EST Patient does not have supplies from last , please send new. She is aware to check bsbs 4 times daily and bring with her to appointments. Reviewed parameters and writing down in a calendar/keeping track of dates/times. * Telephone Encounter - Lashawn Interiano CRNP - 11/23/2023 9:30 AM EST Pt never did her 3hr GTT with her last , and from what I could tell, did not check her blood sugars. 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 Please ask her if she picked this up during her last . 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 In addition, she wouldn't have used up many supplies, so see what sheneeds. I will happily send new things if she no longer has them, or if she didn't pick them up. Make sure she is aware that she has to check her sugars 4 times a day for the rest of andbring the results to every visit. Can write them down on paper, but needs to differentiate which time of day it is done--- dont bring in a long list of numbers for us to look at. * Telephone Encounter - Kristina Hilliard LPN - 11/23/2023 9:12 AM EST Lashawn, patient does not wish to do 3 hour testing. She would like to just start monitoring blood sugars. States she had GDM in last . Aware of anemia and will begin iron supplement as recommended. * Telephone Encounter - Sarah Maya PA-C - 11/22/2023 1:58 PM EST When patient returns call, please let her know that she is anemic. Hemoglobin 10.7. However, ferritin, iron and other measure not too low. Would recommend Iron TID at this time. Sent to pharmacy. * Telephone Encounter - Nany Weiss RN - 11/21/2023 10:54 AM EST Attempted to call pt. NA. Voicemail is full. Unable to leave a message. My G sent to call office. * Telephone Encounter - Lashawn Interiano CRNP - 11/21/2023 10:37 AM EST Please notify pt that glucola elevated (158). Needs 3hr GTT. Orders placed. documented in this encounter Plan of Treatment Upcoming Encounters Date Type Department Care Team (Late st Contact Info) Description 12/04/2023 8:30 AM EST Office Visit Gynecology/Obstetrics [facility] [address] [place] [address] BackerBecky CRNP [address] [place] [address] Nurse Chalino [facility] Return Luciana [address] [place] [address] 12/17/2023 2:30 PM EST Office Visit Gynecology/Obstetrics [facility] [address] [place] [address] Antonio Blanton MD [address] [place] [address] Scheduled Orders Name Type Priority Associated Diagnoses Orde r Schedule GESTATIONAL GLUCOSE TOLERANCE, 3 HOUR Lab Routine Abnormal glucose tolerance in mother complicating Expected: 11/22/2023 (Approximate), Expires: 11/21/2024 Health Maintenance Due Date Last Done Comments [...] Not on filedocumented as of this encounter Results * FERRITIN (11/21/2023 9:03 AM EST) Ferritin 36 13 - 150 ng/mL 11/22/2023 4:16 PM EST [facility] Comment:The above reference range is based on the legal sex of the patient only. Results should be interpreted together with patient's sex at , gender identity, and clinical context. Blood Venous blood specimen / Unknown Venipuncture / Unknown 11/21/2023 9:03 AM EST 11/21/2023 9:03 AM EST Sarah Maya PA-C LAB BLOOD ORDERABLES Performing Organization Address [facility] Co de Phone Number [facility] [address] [place] [address] * (ABNORMAL) IRON SCREEN, INCLUDING TIBC (11/21/2023 9:03 AM EST) Iron 89 33 - 151 ug/dL 11/22/2023 2:45 PM EST LABORATORY C Iron Binding Capacity 454(H) 250 - 425 ug/dL 11/22/2023 2:45 PM EST [facility] Transferrin Saturation Percent 20 15 - 55 % 11/22/2023 2:45 PM EST [facility] Blood Venous blood specimen / Unknown Venipuncture / Unknown 11/21/2023 9:03 AM EST 11/21/2023 9:03 AM EST Sarah Maya PA-C LAB BLOOD ORDERABLES Performing Organization Address [facility] de Phone Number [facility]ORY [facility] [address] [place] [address] documented in this encounter Visit Diagnoses Diagnosis Abnormal GTT (glucose tolerance test)- Primary Impaired glucose tolerance test Abnormal glucose tolerance in mother complicating Abnormal maternal glucose tolerance, complicating , childbirth, or the puerperium, unspecified as to episode of care Antepartum anemia complicating Anemia, antepartum documented in this encounter Care Teams Plant Engineer Relationship Specialty Start Date End Date Coretta June CRNP [address] [place] [address] PCP - General Nurse Practitioner 01/27/22 documented as of this encounter
--- OUTSIDE RECORDS SUMMARY | 2024-01-09 12:30 | External Medical Summary | Summary of Care ---
Author Name Unknown Organization [facility] Address [address] [place] [address] Phone [phone] Care Team Providers Care Metal Handler Name Role Phone Coretta June Primary Care Provider Reason for Visit * Reason Comments [facility] Return Encounter Details Date Type Department Care Team (Late st Contact Info) Description 12/31/2023 3:00 PM EST Office Visit Gynecology/Obstetri nataly Allred [address] [facility] [place] [address] Antonio Blanton MD [address] [place] [address] Nurse Chalino [facility] Return Luciana [address] [place] [address] Encounter for supervision of other normal , unspecified trimester*; H/O section; Short interval between pregnancies complicating , antepartum; Marijuana use during ; History of ; Antepartum anemia complicating Allergies No known active allergiesdocumented as of this encounter (statuses as of 12/31/2023) Medications Medication Sig Dispensed Refills Start Date End Date Status Plus 27-1 MG Oral TabletIndications:H /O section Take 1 Tablet by mouth in the morning. 100 Tablet 3 01/10/2023 Active OneTouch Verio w/Device KitIndications:Abno rmal GTT (glucose [...] before bedtime. 120 Tablet 2 12/17/2023 Active documented as of this encounter (statuses as of 12/31/2023) Active Problems Problem Noted Date Diagnosed Date [...] by Date resolved Headache Increase fluids(non-caffeinated) 08/06/2023 Lnisey Barr RN 08/06/2023 Problem Action Taken Date entered Entered by Date resolved Depression Discuss options with Provider 08/06/2023 Linsey Barr RN 08/06/2023 Problem Action Taken Date entered Entered by Date resolved Need for food assistance referred to [facility] and local food [employer] 08/06/2023 Linsey [...] or questions 11/21/2023 Linsey Barr RN 11/21/2023 Problem Action Taken Date entered Entered by Date resolved Current needs or questions Patient denies having any current needs or questions 12/31/2023 Linsey Barr RN 12/31/2023 Food insecurity 03/19/2023 Overview: Per [facility] Protocol Cannabis abuse 03/01/2023 Encounter for [...] as of this encounter (statuses as of 12/31/2023) Resolved Problems Problem Noted Date Diagnosed Date [...] issues Food insecurity 02/20/2022 09/28/2022 Overview: Per [facility] Protocol documented as of this encounter (statuses as of 12/31/2023) Immunizations Name Administration Dates Next Due TDAP [...] got the money to buy more. Patient declined Within the past 12 months, t he food you bought just didn't last and you didn't have money to get more. Sometimes true [place] Depression Scale Answer Date Recorded [place] Depression Scale Total 15 08/06/2023 The thought [...] Sign Reading Time Taken Comments Blood Pressure 98/56 12/31/2023 3:07 PM EST Pulse - - Temperature - - Respiratory Rate - - Oxygen Saturation - - Inhaled Oxygen Concentration - - Weight 78 kg (172 lb) 12/31/2023 3:07 PM EST Height 160 cm (5' 3") 12/31/2023 3:07 PM EST Body Mass Index 30.47 12/31/2023 3:07 PM EST documented in this encounter Progress Notes * Antonio Blanton MD - 12/31/2023 3:34 PM EST Pt doing well No complaints RTC 1 week ? LGA Pt has still note done labs Will do EFW/growth scan at 38+ weeks Adonis EFW at 28 + weeks documented in this encounter Nursing Notes * Linsey Barr RN - 12/31/2023 3:28 PM EST Patient seen by [facility] Manager Primary. Patient denies any questions or concerns. * Niecy Rinaldi LPN - 12/31/2023 3:17 PM EST 36w5d GBS today. Would like cervical check. documented in this encounter Plan of Treatment Upcoming Encounters Date Type Department Care Team (Late st Contact Info) Description 01/08/2024 8:30 AM EST Office Visit Gynecology/Obstetrics [facility] [address] [place] [address] Antonio Blanton MD [address] [place] [address] Nurse Chalino [facility] Return [facility] [address] [place] [address] 01/08/2024 9:45 AM EST Imaging Radiology [facility] [address] [place] [address] 01/18/2024 2:15 PM EST Office Visit Gynecology/Obstetrics [facility] [address] [place] [address] Lashawn Interiano CRNP [address] [place] [address] Nurse Chalino [facility] Return Luciana [address] [place] [address] 01/21/2024 9:15 AM EDT Office Visit Gynecology/Obstetrics Gabi Allred [address] [place] [address] Sophia Prater, ONDINA [address] [place] [address] Nurse Chalino [facility] Return Luciana [address] [place] [address] Pending Results Name Type Priority Associated Diagnoses Date /Time GROUP B STREP CULTURE/PCR Lab Routine Encounter for supervision of other normal , unspecified trimester 12/31/2023 3:45 PM EST Scheduled Orders Name Type Priority Associated Diagnoses Orde r Schedule CBC WITH WBC DIFFERENTIAL Lab Routine Encounter for supervision of other normal , unspecified trimester Expected: 12/31/2023 (Approximate), Expires: 12/31/2024 PREG FOLLOW-UP EACH FETUS Medical Imaging Routine Antepartum anemia complicating Expected: 01/07/2024 (Approximate), Expires: 01/28/2025 Health Maintenance Due Date Last Done Comments Hepatitis B (1 of 3 - 19+ 3-dose series) 2008 HPV/Co-Test 2019 Depression Screening 01/27/2023 01/27/2022 COVID-19 Vaccine (1 - 2022-2 4 season) 2023 Influenza Vaccine (FLU shot) (#1) 2023 Cervical [...] antepartum documented in this encounter Care Teams Metal Handler Relationship Specialty Start Date End Date Coretta June CRNP [address] [place] [address] PCP - General Nurse Practitioner 01/27/22 documented as of this encounter
--- OUTSIDE RECORDS SUMMARY | 2024-01-09 12:31 | External Medical Summary ---
Author Name Unknown Address Unknown Organization [id number][facility] [address] [place] [address] Laboratory Report Ordering Provider Test Date Status VALENTEEDWARD 11/21/2023 09:03:17 Final Observation Date Value Abnormality Reference (Units ) Status Glucose [Moles/volume] in Serum or Plasma --1 hour post 50 g glucose PO 11/21/2023 09:03:17 158 Above high normal 70-129 (mg/dL) Final Performing Location [facility] 0 - [address] [place] [address]
--- OUTSIDE RECORDS SUMMARY | 2024-01-09 12:31 | External Medical Summary ---
Author Name Unknown Address Unknown Organization [id number]:[facility] - [address] [facility] [address] Laboratory Report Ordering Provider Test Date Status NATHANIEL OVIEDO 11/21/2023 09:03:17 Final Observation Date Value Abnormality Reference (Units ) Status SYNC LEUKOCYTES IN BLOOD BY AUTOMATED COUNT 11/21/2023 09:03:17 8.15 4.00-10.80 (K/uL) Final Segs 11/21/2023 09:03:17 65.2 40.0-75.0 (%) Final Lymphs % 11/21/2023 09:03:17 24.8 18.0-42.0 (%) Final Monos 11/21/2023 09:03:17 6.5 1.0-11.0 (%) Final Eosinophils 11/21/2023 09:03:17 2.5 0.0-6.0 (%) Final Basos 11/21/2023 09:03:17 0.6 0.0-2.0 (%) Final Immature Granulocyte, Percent 11/21/2023 09:03:17 0.4 0.0-2.0 (%) Final Absolute Segs 11/21/2023 09:03:17 5.32 1.80-7.70 (K/uL) Final Lymphs, absolute 11/21/2023 09:03:17 2.02 1.00-4.80 (K/ul) Final Monos, Abs 11/21/2023 09:03:17 0.53 0.00-1.10 (K/uL) Final Eos, Abs 11/21/2023 09:03:17 0.20 0.00-0.70 (K/uL) Final Basos, Abs 11/21/2023 09:03:17 0.05 0.00-0.20 (K/uL) Final Immature Granulocytes, Number 11/21/2023 09:03:17 0.03 0.00-0.20 (K/uL) Final Performing Location [facility] - [address] [facility] [address]
--- OUTSIDE RECORDS SUMMARY | 2024-01-09 12:31 | External Medical Summary ---
Author Name Unknown Address Unknown Organization [id number]:[facility]ORY [facility] - [address] [place] [address] Laboratory Report Ordering Provider Test Date Status NATHANIEL OVIEDO 11/21/2023 09:03:17 Final Observation Date Value Abnormality Reference (Units ) Status ABO 11/21/2023 09:03:17 AB Final RH 11/21/2023 09:03:17 Positive Final RED BLOOD CELL ANTIBODY SCREEN 11/21/2023 09:03:17 Negative Final SPECIMEN EXPIRATION DATE 11/21/2023 09:03:17 11/24/2023 23:59 Final Performing Location [facility]ORY [facility] - [address] [place] [address]
--- OUTSIDE RECORDS SUMMARY | 2024-01-09 12:31 | External Medical Summary ---
Author Name Unknown Address Unknown Organization [id number]:LABORATORY [facility] - [address] [place] [address] Laboratory Report Ordering Provider Test Date Status NATHANIEL OVIEDO 11/21/2023 09:03:17 Final Observation Date Value Abnormality Reference (Units ) Status WBC, Total 11/21/2023 09:03:17 8.15 4.00-10.8 0 (K/uL) Final RBC 11/21/2023 09:03:17 3.07 3.85-5.15 (M/uL) Final Hemoglobin 11/21/2023 09:03:17 10.7 Below low normal 12 .0-15.3 (g/dL) Final Anemia reflex testing trigge rs on a HGB < 12.0 for Females and HGB < 13.0 for Males in accordance with the WHO Anemia Guidelines
Anemia reflex testing triggers on a HGB < 12.0 for Females and HGB < 13.0 for Males in accordance with the WHO Anemia Guidelines HCT 11/21/2023 09:03:17 31.5 Below low normal 36. 0-45.2 (%) Final MCV 11/21/2023 09:03:17 102.6 81.5-97.5 (fL) Final MCH 11/21/2023 09:03:17 34.9 27.0-34.0 (pg) Final MCHC 11/21/2023 09:03:17 34.0 32.0-36.0 (g/dL) Final RDW 11/21/2023 09:03:17 13.2 11.5-15.5 (%) Final Platelets 11/21/2023 09:03:17 204 140-400 (K /uL) Final MPV 11/21/2023 09:03:17 11.0 6.6-11.1 ( fL) Final Nucleated erythrocytes/100 leukocytes [Ratio] in Blood by Automated count 11/21/2023 09:03:17 0 <=0 (/100 WBCs) Fi [facility] Performing Location [facility] - [address] [facility] [address]
--- OUTSIDE RECORDS SUMMARY | 2024-01-09 12:31 | External Medical Summary | Summary of Care ---
Author Name Unknown Organization [facility] Address [address] [facility] [place] [address] Phone [phone] Care Team Providers Care Recreational Therapy Aide Name Role Phone Coretta June Primary Care Provider Encounter Details Date Type Department Care Team (Late st Contact Info) Description 11/21/2023 Telephone Gynecology/Obstetrics [facility] [address] [place] [address] Sarah Maya PA-C [address] [place] [address] Allergies No known active allergiesdocumented as of this encounter (statuses as of 11/21/2023) Medications Medication Sig Dispensed Refills Start Date End Date Status Plus 27-1 MG Oral TabletIndications:H/O section Take 1 Tablet by mouth in the morning. 100 Tablet 3 01/10/2023 Active documented as of this encounter (statuses [...] resolved Need for food assistance referred to [facility] and local food [employer] 08/06/2023 Linsey [...] RN 10/08/2023 Food insecurity 03/19/2023 Overview: Per [facility] Protocol Cannabis abuse 03/01/2023 Encounter for [...] have money to get more. Sometimes true [place] Depression Scale Answer Date Recorded [place] Depression Scale Total 15 08/06/2023 The thought [...] Visit Gynecology/Obstetrics Gabi Allred [address] [place] [address] Becky Murphy CRNP [address] [place] [address] Nurse Chalino [facility] Return Luciana [address] [place] [address] 12/17/2023 2:30 PM EST Office Visit Gynecology/Obstetrics Gabi Allred [address] [place] [address] Antonio Blanton MD [address] [place] [address] Health Maintenance Due Date Last Done Comments [...] filedocumented as of this encounter Care Teams Recreational Therapy Aide Relationship Specialty Start Date End Date Coretta June CRNP [address] [place] [address] PCP - General Nurse Practitioner 01/27/22 documented as of this encounter
--- OUTSIDE RECORDS SUMMARY | 2024-01-09 12:31 | External Medical Summary | Summary of Care ---
Author Name Unknown Organization [facility] Address [address] [place] [address] Phone [phone] Care Team Providers Care Crane Ladle Person Name Role Phone Coretta June Primary Care Provider Reason for Visit * Reason Comments Outpatient Testing Encounter Details Date Type Department Care Team (Late st Contact Info) Description 11/21/2023 8:00 AM EST Laboratory Laboratory, [facility] [address] [place] [address] [facility] [address] [place] [address] Normal in multigravida; Normal , second trimester Allergies No known active allergiesdocumented as of [...] resolved Need for food assistance referred to [facility] and local [employer] 08/06/2023 Linsey Barr RN 08/06/2023 Problem Action Taken Date entered Entered by Date resolved Current needs or questions Patient denies having any current needs or questions 09/07/2023 Linsey Barr RN 09/07/2023 Problem Action Taken Date entered Entered by Date resolved Non-compliant with lab work Reinforce importance of lab values for mom and baby 10/08/2023 Linsey Barr RN 10/08/2023 Food insecurity 03/19/2023 Overview: Per [facility] Protocol Cannabis abuse 03/01/2023 Encounter for [...] have money to get more. Sometimes true [place] Depression Scale Answer Date Recorded [place] Depression Scale Total 15 08/06/2023 The thought [...] Gynecology/Obstetrics Gabi Allred [address] [place] [address] Becky Murphy CRNP [address] [place] [address] Nurse Chalino [facility] Return Luciana [address] [place] [address] 12/17/2023 2:30 PM EST Office Visit [facility] [address] [place] [address] Antonio Blanton MD [address] [place] [address] Pending Results Name Type Priority Associated Diagnoses Date /Time TYPE AND SCREEN Lab Routine Normal in multigravida 11/21/2023 9:03 AM EST CBC WITH WBC DIFFERENTIAL AND ANEMIA REFLEX WORKUP Lab Routine Normal in multigravida 11/21/2023 9:03 AM EST 50-G GESTATIONAL GLUCOSE, 1 HOUR Lab Routine Normal , second trimester 11/21/2023 9:03 AM EST ANEMIA CBC Lab Routine Normal in multigravida 11/21/2023 9:03 AM EST DIFFERENTIAL, AUTOMATED Lab Routine Normal in multigravida 11/21/2023 9:03 AM EST ANEMIA REFLEX CHEMISTRY HOLD Lab Routine Normal in multigravida 11/21/2023 9:03 AM EST SYPHILIS ANTIBODY SCREEN WITH REFLEX TO RPR Lab Routine Normal , second trimester 11/21/2023 9:03 AM EST SYPHILIS ANTIBODY SCREEN Lab Routine Normal , second trimester 11/21/2023 9:03 AM EST Health Maintenance Due Date Last Done Comments [...] as of this encounter Visit Diagnoses Diagnosis Normal in multigravida Normal , second trimester documented in this encounter Care Teams Crane Ladle Person Relationship Specialty Start Date End Date Coretta June CRNP [address] [place] [address] PCP - General Nurse Practitioner 01/27/22 documented as of this encounter
--- OUTSIDE RECORDS SUMMARY | 2024-01-09 12:31 | External Medical Summary ---
Author Name Unknown Address Unknown Organization [id number]:LABORATORY [facility] - [address] [place] [address] Laboratory Report Ordering Provider Test Date Status IVELISSENATHANIEL 11/21/2023 09:03:17 Final Observation Date Value Abnormality Reference (Units ) Status Iron 11/21/2023 09:03:17 89 33-151 (ug/dL) Final Iron-binding capacity 11/21/2023 09:03:17 454 Above high normal 250-425 (ug/dL) Final Transferrin Sat % 11/21/2023 09:03:17 20 15-55 (%) Final Performing Location [facility] [address] [facility] [address]
--- OUTSIDE RECORDS SUMMARY | 2024-01-09 12:31 | External Medical Summary | Summary of Care ---
Author Name Unknown Organization [facility] Address [address] [place] [facility] [place] [address] Phone [phone] Care Team Providers Care Pull Through Hooker Name Role Phone Coretta June Primary Care Provider Reason for Referral * Evaluate & Treat - Unlimited Visits (Within 10 days (routine)) - Authorized Specialty Diagnoses / Procedures Referred By Camryn t Referred To Contact Otolaryngology Diagnoses Problem of right ear Sarah Maya PA-C [address] [place] [address] Referral ID Status Reason Start Date Expiration Date Visits Requested Visits Authorized [id number] Authorized Specialty Services Required 3 [phone] Question Answer Referral Priority Within 10 days (routine) Where should this appointment be scheduled? [facility] Reason for Referral Ear Conditions Specific Condition: Other Condition Comments Comodone in ear, pt uncomfortable Reason for Visit * Reason Comments Initial Visit Encounter Details Date Type Department Care Team (Late st Contact Info) Description 09/07/2023 11:15 AM EDT Office Visit Gynecology/Obstetri nataly Allred [address] [place] [address] Sarah Maya PA-C [address] [place] [address] Nurse Chalnio [facility] Return Luciana [address] [place] [address] Encounter for follow-up ultrasound of anatomy*; Problem of right ear Allergies No known active allergiesdocumented as of this encounter (statuses as of 09/07/2023) Medications Medication Sig Dispensed Refills Start Date End Date Status Plus 27-1 MG Oral TabletIndications:H/O section Take 1 Tablet by mouth in the morning. 100 Tablet 3 01/10/2023 Active Ondansetron HCl 4 MG Oral Tablet Take 1 Tablet by mouth every 12 hours as needed for Nausea. 30 Tablet 0 07/17/2023 Active documented as of this encounter (statuses as of 09/07/2023) Active Problems Problem Noted Date Diagnosed Date Health counseling 08/06/2023 Overview: Problem Action Taken Date entered Entered by Date resolved Headache Increase fluids(non-caffeinated) 08/06/2023 Linsey Barr RN 08/06/2023 Problem Action Taken Date entered Entered by Date resolved Depression Discuss options with Provider 08/06/2023 Linsey Barr RN 08/06/2023 Problem Action Taken Date entered Entered by Date resolved Need for food assistance referred to [facility] and local food [employer] 08/06/2023 Linsey Barr RN 08/06/2023 Problem Action Taken Date entered Entered by Date resolved Current needs or questions Patient denies having any current needs or questions 09/07/2023 Linsey Barr RN 09/07/2023 Positive test 07/17/2023 Food insecurity 03/19/2023 Overview: Per [facility] Protocol Cannabis abuse 03/01/2023 Tobacco use Estimated Date of Delivery Comme nts Yes 01/23/2024 Based on Ultraso und documented as of this encounter (statuses as of 09/07/2023) Resolved Problems Problem Noted Date Diagnosed Date Resolved Date Abnormal glucose tolerance i n mother complicating 01/03/2023 01/16/2023 Overview: Failed 1 hour. Needs 3 hour gtt. Patient has been counseled on increased maternal risk including macrosomia and stillbirth. Has not yet completed as of 37 weeks. Agreeable to home testing. Supervision of other normal 07/04/2022 01/16/2023 H/O section 07/04/2022 023 Overview: Desires TOLAC. At NOB she states she is considering home . Reports blood transfusion following c/s. Unclear as to why. Second she reports as uncomplicated . Medical marijuana use 07/04/20222022 Overview: For mental issues Food insecurity 02/20/2022 09/28/2022 Overview: Per [facility] Protocol documented as of this encounter (statuses as of 09/07/2023) Immunizations Name Administration Dates Next Due TDAP [...] have money to get more. Sometimes true [place] Depression Scale Answer Date Recorded [place] Depression Scale Total 15 08/06/2023 The thought [...] Sign Reading Time Taken Comments Blood Pressure 104/58 09/07/2023 9:41 AM EDT Pulse - - Temperature - - Respiratory Rate - - Oxygen Saturation - - Inhaled Oxygen Concentration - - Weight 68.9 kg (152 lb) 09/07/2023 9:41 AM EDT Height 160 cm (5' 3") 09/07/2023 9:41 AM EDT Body Mass Index 26.93 09/07/2023 9:41 AM EDT documented in this encounter Progress Notes * Sarah Maya PA-C - 09/07/2023 10:07 AM EDT 20w2d Anatomy complete today -- baby girl! Needs follow up for missed anatomy for spine in 2 weeks per RDMS. + FHT by sono. Denies concerns. Denies bleeding/leaking/contractions. Pos fm. Asking for referral for pimple in ear, very painful. Aware needs to do glucola screen and other labs. Will plan for routine labs today. Would like to confirm insurance coverage regarding Qnatal. RTC in 4 weeks Sarah Maya PA-C * Niecy Rinaldi LPN - 09/07/2023 9:42 AM EDT 20w2d Backache, occasional headaches. Acid reflux, manageable. Anatomy scan completed today. Will do glucola at a later time. documented in this encounter Nursing Notes * Linsey Barr RN - 09/07/2023 10:10 AM EDT Patient seen by [facility] Debt Collection Specialist. Patient denies any questions or concerns. documented in this encounter Plan of Treatment Upcoming Encounters Date Type Department Care Team (Late st Contact Info) Description 09/21/2023 9:15 AM EST Imaging Radiology [address] [facility] [address] [facility] [place] [address] 10/08/2023 8:00 AM EST Office Visit Gynecology/Obstetrics [facility] [address] [facility] [place] [address] Lashawn Interiano CRNP [address] [facility] [place] [address] 11/14/2023 11:00 AM EST Office Visit Otolaryngology [facility] [address] [facility] [place] [address] Nayeli Flanagan PA-C [address] [facility] [place] [address] 01/03/2024 9:15 AM EST Office Visit Dermatology [facility] [address] [facility] [place] [address] Sherie Cantrell MD [address] [facility] [address] Scheduled Orders Name Type Priority Associated Diagnoses Orde r Schedule US PREG LIMITED 1 OR MORE FETUSES Medical Imaging Routine Encounter for follow-up ultrasound of anatomy Expected: 09/21/2023 (Approximate), Expires: 10/08/2024 Scheduled Referrals Name Type Priority Associated Diagnoses Order Schedule OTOLARYNGOLOGY REFERRAL OP Referral Within 10 days (routine) Problem of right ear Ordered: 09/07/2023 Health Maintenance Due Date Last Done Comments [...] this encounter Visit Diagnoses Diagnosis Encounter for follow-up ultrasound of anatomy- Primary Problem of right ear documented in this encounter Care Teams Pull Through Hooker Relationship Specialty Start Date End Date Coretta June CRNP [address] [place] [address] PCP - General Nurse Practitioner 01/27/22 documented as of this encounter
--- OUTSIDE RECORDS SUMMARY | 2024-01-09 12:31 | External Medical Summary ---
Author Name Unknown Address Unknown Organization [id number]:LABORATORY [facility] - [address] [place] [address] Laboratory Report Ordering Provider Test Date Status EDWARD VICTOR 11/21/2023 09:03:35 Final Observation Date Value Abnormality Reference (Units ) Status Treponema pallidum Ab [Presence] in Serum by Immunoassay 11/21/2023 09:03:35 Nonreactive Nonreactive Final No serologic evidence of syp hilis. No additional testing clinicially indicated at this time. Consider repeat testing in 2-4 weeks if acute or primary syphilis is suspected. Performing Location LABORATORY [facility] - [address] [place] [address]
--- OUTSIDE RECORDS SUMMARY | 2024-01-09 12:31 | External Medical Summary ---
Author Name Unknown Address Unknown Organization K01:LABORATORY [facility] - [facility] [place] [address] Laboratory Report Ordering Provider Test Date Status NATHANIEL OVIEDO 11/21/2023 09:03:17 Final Observation Date Value Abnormality Reference (Units ) Status Retic, % (auto) 11/21/2023 09:03:17 2.88 Above high normal 0.80-1.90 (%) Final Reticulocytes, Absolute 11/21/2023 09:03:17 89.6 31.3-100.1 (K/uL) Final Reticulocyte fraction, immature 11/21/2023 09:03:17 24.8 Above high normal 2.5-20.6 (%) Final Reticulocyte HGB 11/21/2023 09:03:17 37.4 29.7-37.4 (pg) Final Performing Location LABORATORY [facility] - [address] [place] [address]
--- OUTSIDE RECORDS SUMMARY | 2024-01-09 12:31 | External Medical Summary ---
Author Name Unknown Address Unknown Organization K01:LABORATORY [facility] - [address] [place] [address] Laboratory Report Ordering Provider Test Date Status NATHANIEL OVIEDO 11/21/2023 09:03:17 Final Observation Date Value Abnormality Reference (Units ) Status Ferritin 11/21/2023 09:03:17 36 13-150 (ng /mL) Final The above reference range is based on the legal sex of the patient only. Results should be interpreted together with patient's sex at , gender identity, and clinical context. Performing Location LAB[facility]ATORY [facility] - [address] [place] [address]
--- OUTSIDE RECORDS SUMMARY | 2024-01-09 12:31 | External Medical Summary | Summary of Care ---
Author Name Unknown Organization [facility] Address [address] [place] [address] Phone [phone] Care Team Providers Care Motor Man Name Role Phone Coretta June Primary Care Provider Reason for Visit * Reason Comments Return Visit Encounter Details Date Type Department Care Team (Late st Contact Info) Description 10/08/2023 8:00 AM EST Office Visit Gynecology/Obstetric s Gabi Allred [address] [facility] [place] [address] Lashawn Interiano CRNP [address] [facility] [place] [address] Normal , second trimester*; H/O section Allergies No known active allergiesdocumented as of this encounter (statuses as of 10/08/2023) Medications Medication Sig Dispensed Refills Start Date End Date Status Plus 27-1 MG Oral TabletIndications:H/O section Take 1 Tablet by mouth in the morning. 100 Tablet 3 01/10/2023 Active Ondansetron HCl 4 MG Oral Tablet Take 1 Tablet by mouth every 12 hours as needed for Nausea. 30 Tablet 0 07/17/2023 Active documented as of this encounter (statuses as of 10/08/2023) Active Problems Problem Noted Date Diagnosed Date Health counseling 08/06/2023 Overview: Problem Action Taken Date entered Entered by Date resolved Headache Increase fluids(non-caffeinated) 08/06/2023 Linsey Barr RN 08/06/2023 Problem Action Taken Date entered Entered by Date resolved Depression Discuss options with Provider 08/06/2023 Linsey Barr RN 08/06/2023 Problem Action Taken Date entered Entered by Date resolved Need for food assistance referred to [facility] and local food [place] 08/06/2023 [...] and baby 10/08/2023 Linsey Barr RN 10/08/2023 Positive test 07/17/2023 Food insecurity 03/19/2023 Overview: Per [facility] Protocol Cannabis abuse 03/01/2023 Encounter for [...] as of this encounter (statuses as of 10/08/2023) Resolved Problems Problem Noted Date Diagnosed Date [...] issues Food insecurity 02/20/2022 09/28/2022 Overview: Per [facility] Protocol documented as of this encounter (statuses as of 10/08/2023) Immunizations Name Administration Dates Next Due TDAP [...] have money to get more. Sometimes true [place] Depression Scale Answer Date Recorded [place] Depression Scale Total 15 08/06/2023 The thought [...] Sign Reading Time Taken Comments Blood Pressure 102/58 10/08/2023 8:01 AM EST Pulse - - Temperature - - Respiratory Rate - - Oxygen Saturation - - Inhaled Oxygen Concentration - - Weight 73 kg (161 lb) 10/08/2023 8:01 AM EST Height - - Body Mass Index 28.52 09/07/2023 9:41 AM EDT documented in this encounter Progress Notes * Lashawn Interiano CRNP - 10/08/2023 8:09 AM EST 24w5d Used 1 day Monistat for some relief of yeast symptoms. This did help but not completely. Recommend Monistat 7, she will have to wait to get the money for that. Not eating well. Throwing up about 3 times a day Zofran makes it worse. Has gained 9lb since last visit, but states she was eating candy and chips. Hasn't had NOB labs drawn yet. Encouraged to do so. Baby is active. No bleeding or contractions. Glucola with next visit. * Nelida Anderson LPN - 10/08/2023 8:02 AM EST 24w5d Denies vaginal bleeding/rom + movement Requesting script for 7 day Monistat documented in this encounter Nursing Notes * Linsey Barr RN - 10/08/2023 8:29 AM EST Patient seen by [facility] Animal Rides Manager. Patient denies any questions or concerns. have you cut down with your smoking n/a have you quit n/a have you seen a breakdown man no have you seen a clinical social work therapist no are you receiving counseling no have you received dental care during your no are you enrolled in WIC yes do you receive food stamps or [place] assistance yes Linsey Barr RN documented in this encounter Plan of Treatment Upcoming Encounters Date Type Department Care Team (Late st Contact Info) Description 10/11/2023 8:00 AM EST [facility] [address] [place] [address] Nicholas Tyson PA-C [address] [place] [address] 11/06/2023 8:10 AM EST [facility] [address] [place] [phone] Karen Allred [address] [place] [address] 11/06/2023 8:15 AM EST Office Visit Gynecology/Obstetrics Gabi Allred [address] [place] [address] BackerBecky CRNP [address] [place] [address] Nurse [facility] [place] [address] [place] [address] 01/03/2024 9:15 AM EST Office Visit Dermatology Rocio [place] [address] [facility] [place] [address] Sherie Cantrell MD [address] [facility] [place] [address] Scheduled Orders Name Type Priority Associated Diagnoses Orde r Schedule 50-G GESTATIONAL GLUCOSE, 1 HOUR Lab Routine Normal , second trimester Expected: 10/22/2023 (Approximate), Expires: 10/08/2024 CBC WITH WBC DIFFERENTIAL AND ANEMIA REFLEX WORKUP Lab Routine Normal , second trimester Expected: 10/22/2023 (Approximate), Expires: 10/08/2024 SYPHILIS ANTIBODY SCREEN WITH REFLEX TO RPR Lab Routine Normal , second trimester Expected: 10/22/2023 (Approximate), Expires: 10/08/2024 Health Maintenance Due Date Last Done Comments [...] of this encounter Visit Diagnoses Diagnosis Normal , second trimester- Primary H/O section Other postprocedural status documented in this encounter Care Teams Motor Man Relationship Specialty Start Date End Date Coretta June CRNP [address] [place] [address] PCP - General Nurse Practitioner 01/27/22 documented as of this encounter
--- OUTSIDE RECORDS SUMMARY | 2024-01-09 12:31 | External Medical Summary | Summary of Care ---
Author Name Unknown Organization [facility] Address [address] [place] [address] Phone [phone] Care Team Providers Care Latex Ribbon Machine Operator Name Role Phone Coretta June Primary Care Provider Reason for Visit * Reason Comments Outpatient Testing Encounter Details Date Type Department Care Team (Late st Contact Info) Description 10/08/2023 8:50 AM EST Laboratory Laboratory, [facility] [address] [place] [address] [facility] [address] [place] [address] Arrived Allergies No known active allergiesdocumented as of [...] resolved Need for food assistance referred to [facility] and local food [employer] 08/06/2023 Linsey [...] test 07/17/2023 Food insecurity 03/19/2023 Overview: Per [facility] Protocol Cannabis abuse 03/01/2023 Encounter for [...] issues Food insecurity 02/20/2022 09/28/2022 Overview: Per [facility] Protocol documented as of this encounter [...] have money to get more. Sometimes true [place] Depression Scale Answer Date Recorded [place] Depression Scale Total 15 08/06/2023 The thought [...] 10/11/2023 8:00 AM EST Office Visit Otolaryngology [facility] [address] [place] [address] Nicholas Tyson PA-C [address] [place] [address] 11/06/2023 8:10 AM EST Laboratory Laboratory, [facility] [address] [place] [phone] Karen Allreds [address] [place] [address] 11/06/2023 8:15 AM EST Office Visit Gynecology/Obstetrics Gabi Allred [address] [place] [address] Becky Murphy CRNP [address] [place] [address] Nurse [facility] [place] [address] [place] [address] 01/03/2024 9:15 AM EST Office Visit Dermatology [facility] [address] [place] [address] Sherie [facility]rell MD [address] [facility] [address] Health Maintenance Due Date Last Done Comments [...] filedocumented as of this encounter Care Teams Latex Ribbon Machine Operator Relationship Specialty Start Date End Date Coretta June CRNP [address] [place] [address] PCP - General Nurse Practitioner 01/27/22 documented as of this encounter
--- OUTSIDE RECORDS SUMMARY | 2024-01-09 12:31 | External Medical Summary | Summary of Care ---
Author Name Unknown Organization [facility] Address [address] [place] [address] Phone [phone] Care Team Providers Care Drier Tender Naphthalene Name Role Phone Coretta June Primary Care Provider Reason for Visit * Reason Onset Date Comments Appointment 07/17/2023 Encounter Details Date Type Department Care Team (Late st Contact Info) Description 07/17/2023 Telephone Family Practice [facility] [address] [facility] [place] [address] Coretta June CRNP [address] [facility] [place] [address] Appointment Allergies No known active allergiesdocumented as of this encounter (statuses as of 10/16/2023) Medications Medication Sig Dispensed Refills Start Date End Date Status Plus 27-1 MG Oral TabletIndications:H/O section Take 1 Tablet by mouth in the morning. 100 Tablet 3 01/10/2023 Active Ondansetron HCl 4 MG Oral Tablet Take 1 Tablet by mouth every 12 hours as needed for Nausea. 30 Tablet 0 07/17/2023 Active documented as of this encounter (statuses as of 10/16/2023) Active Problems Problem Noted Date Diagnosed Date Health counseling 08/06/2023 Overview: Problem Action Taken Date entered Entered by Date resolved Headache Increase fluids(non-caffeinated) 08/06/2023 Linsey Barr RN 08/06/2023 Problem Action Taken Date entered Entered by Date resolved Depression Discuss options with Provider 08/06/2023 Linsey Barr RN 08/06/2023 Problem Action Taken Date entered Entered by Date resolved Need for food assistance referred to [facility] and local food [place] 08/06/2023 Linsey [...] test 07/17/2023 Food insecurity 03/19/2023 Overview: Per [facility] Protocol Cannabis abuse 03/01/2023 Encounter for supervision of other normal , unspecified trimester 07/04/2022 H/O section 07/04/2022 Overview: Desires [facility]. At [facility] she states she is considering home . Reports blood transfusion following c/s. Unclear as to why. Second she reports as uncomplicated . Tobacco use documented as of this encounter (statuses as of 10/16/2023) Resolved Problems Problem Noted Date Diagnosed Date [...] issues Food insecurity 02/20/2022 09/28/2022 Overview: Per [facility] Protocol documented as of this encounter (statuses as of 10/16/2023) Immunizations Name Administration Dates Next Due TDAP (age 10 and older)(Boostrix) 12/11/2022, documented as of this encounter Social History Tobacco Use Types Packs/Day Years Used Date Smoking Tobacco: Some Days Cigarettes 0.3 5 Smokeless Tobacco: Never Alcohol [...] have money to get more. Sometimes true [place] Depression Scale Answer Date Recorded [place] Depression Scale Total 15 08/06/2023 The thought of harming myself has occurred to me . Never 08/06/2023 Sex and Gender Information Value Date Recorded Sex Assigned at Female 07/04/2022 10:38 AM EDT Gender Identity Choose not to disclose 2 10:38 AM EDT Sexual Orientation Choose not to disclose 2021 10:38 AM EDT Job Start Date Occupation Industry Not on file Not on file Not on file documented as of this encounter Miscellaneous Notes * Telephone Encounter - Sarah Maya PA-C - 07/18/2023 7:21 AM EDT Order placed for dating. Routing back. Sarah Maya PA-C * Telephone Encounter - Annmarie Velazquez OSA - 07/17/2023 2:25 PM EDT Apts scheduled; Please place order for Dating US and send back to me. * Telephone Encounter - Jayla Sanchez OSA - 07/17/2023 12:08 PM EDT Patient needs an apt within 10 days for according to follow up instructions from today's visit with Coretta Rhed but I do not have anything showing up. Please call pt to schedule. Thank you. documented in this encounter Plan of Treatment Upcoming Encounters Date Type Department Care Team (Late st Contact Info) Description 11/06/2023 8:10 AM EST [facility] [address] [facility] [phone] Karen Allred [facility] [address] 11/06/2023 8:15 AM EST Office Visit Gynecology/Obstetrics [facility] [address] [facility] [place] [address] [place], DELMIS [place] [address] [place] [address] Nurse Chal[facility] Return [facility] 132 [facility] [place] [address] 01/03/2024 9:15 AM EST Office Visit Dermatology [facility] [address] [place] [address] Sherie Cantrell MD 200 [place] [address] Health Maintenance Due Date Last Done Comments [...] Not on filedocumented as of this encounter Procedures Procedure Name Priority Date/Time Associated Diagnosis Comments US PELVIS TRANS-VAGINAL OB Routine 08/06/2023 9:44 AM EDT Early stage of documented in this encounter Results * US PELVIS TRANS-VAGINAL OB (08/06/2023 9:44 AM EDT) Anatomical Region Laterality Modality Pelvis, Body Ultrasound 08/06/2023 10:1 0 AM EDT Impressions 08/06/2023 10:07 AM EDT IMPRESSION 1. Single live fetus with JULIA of 01/23/2024. 2. Anatomic evaluation is recommended in 4 to 5 weeks. Narrative 08/06/2023 10:07 AM EDT EXAM US PELVIS OB-08/06/2023 9:44 am HISTORY Dating/viability COMPARISON None TECHNIQUE Sonographic examination performed. FINDINGS General : Donaldson Presentation: Transverse, head maternal right heart rate: 138 bpm Amniotic Fluid: Within normal limits Placenta: Anterior Anatomy Too early to evaluate Biometry Biparietal diameter: 2.9 cm, 15w 2d Head circumference: 11.5 cm, 15w 5d Abdominal circumference: 9.6 cm, 15w 6d Femur length: 1.8 cm, 15w 4d Humeral length: 2.0 cm, 15w 6d HC/AC: 1.20,within normal limits The composite age is 15 weeks 5 days, which gives an estimated date of delivery of 01/23/2024. Maternal Structures Myometrium: Unremarkable Right ovary: Unremarkable Left ovary: Unremarkable Procedure Note Galdino Baptiste MD - 08/06/2023 EXAM US PELVIS OB-08/06/2023 9:44 am HISTORY Dating/viability COMPARISON None TECHNIQUE Sonographic examination performed. FINDINGS General : Donaldson Presentation: Transverse, head maternal right heart rate: 138 bpm Amniotic Fluid: Within normal limits Placenta: Anterior Anatomy Too early to evaluate Biometry Biparietal diameter: 2.9 cm, 15w 2d Head circumference: 11.5 cm, 15w 5d Abdominal circumference: 9.6 cm, 15w 6d Femur length: 1.8 cm, 15w 4d Humeral length: 2.0 cm, 15w 6d HC/AC: 1.20,within normal limits The composite age is 15 weeks 5 days, which gives an estimated dateof delivery of 01/23/2024. Maternal Structures Myometrium: Unremarkable Right ovary: Unremarkable Left ovary: Unremarkable IMPRESSION IMPRESSION 1. Single live fetus with JULIA of 01/23/2024. 2. Anatomic evaluation is recommended in 4 to 5 weeks. Sarah Maya PA-C RAD ULTRASOUND documented in this encounter Visit Diagnoses Diagnosis Early stage of - Primary documented in this encounter Care Teams Drier Tender Naphthalene Relationship Specialty Start Date End Date Coretta June CRNP [address] [facility] [place] [address] PCP - General Nurse Practitioner 01/27/22 documented as of this encounter
--- OUTSIDE RECORDS SUMMARY | 2024-01-09 12:32 | External Medical Summary | Summary of Care ---
Author Name Unknown Organization [facility] Address [address] [place] [address] Phone [phone] Care Team Providers Care Seasoning Sprayer Name Role Phone Coretta June Primary Care Provider Reason for Visit * Reason Comments Healthy [facility]nings New Encounter Details Date Type Department Care Team Description 08/06/2023 Office Visit Gynecology/Obstetrics [facility] [address] [place] [address] Sarah Maya PA-C [address] [place] [address] [place], Nurse Drivematic Machine Operator New [address] [place] [address] Normal in multigravida*; Cannabis abuse; Tobacco use; Depression complicating , antepartum; Abnormal GTT (glucose tolerance test); History of Allergies No known active allergiesdocumented as of this encounter (statuses as of 08/06/2023) Medications Medication Sig Dispensed Refills Start Date End Date Status Plus 27-1 MG Oral TabletIndications:H/O section Take 1 Tablet by mouth in the morning. 100 Tablet 3 01/10/2023 Active Ondansetron HCl 4 MG Oral Tablet Take 1 Tablet by mouth every 12 hours as needed for Nausea. 30 Tablet 0 07/17/2023 Active documented as of this encounter (statuses as of 08/06/2023) Active Problems Problem Noted Date Health counseling 08/06/2023 Overview: Problem Action Taken Date entered Entered by Date resolved Headache Increase fluids(non-caffeinated) 08/06/2023 Linsey aBrr RN 08/06/2023 Problem Action Taken Date entered Entered by Date resolved Depression Discuss options with Provider 08/06/2023 Linsey Barr RN 08/06/2023 Problem Action Taken Date entered Entered by Date resolved Need for food assistance referred to [facility] and local [employer] 08/06/2023 Linsey Barr RN 08/06/2023 Positive test 07/17/2023 Food insecurity 03/19/2023 Overview: Per [facility] Protocol Cannabis abuse 03/01/2023 Tobacco use Estimated Date of Delivery Comme nts Yes 01/23/2024 Based on Ultraso und documented as of this encounter (statuses as of 08/06/2023) Resolved Problems Problem Noted Date Resolved Date Abnormal glucose tolerance in mother complicatin g 01/03/2023 01/16/2023 Overview: Failed 1 hour. Needs 3 hour gtt. Patient has been counseled on increased maternal risk including macrosomia and stillbirth. Has not yet completed as of 37 weeks. Agreeable to home testing. Supervision of other normal 07/04/2022 01/16/2023 H/O section 07/04/2022 01/16/2023 Overview: Desires TOLAC. At NOB she states she is considering home . Reports blood transfusion following c/s. Unclear as to why. Second she reports as uncomplicated . Medical marijuana use 07/04/2022 01/16/2023 Overview: For mental issues Food insecurity 02/20/2022 09/28/2022 Overview: Per [facility] Protocol documented as of this encounter (statuses as of 08/06/2023) Immunizations Name Administration Dates Next Due TDAP (age 10 and older)(Boostrix) 12/11/2022, documented as of this encounter Social History Tobacco Use Types Packs/Day Years Used Date Smoking Tobacco: Former Cigarettes 0.3 5 Smokeless Tobacco: Never Tobacco Cessation:Counseling Given: Not Answered Alcohol Use Standard Drinks/Week Comments Not Currently 0 (1 standard drink = 0.6 oz pur e alcohol) occ. Food Insecurity Answer Date Recorded Within the past 12 months, y ou worried that your food would run out before you got money to buy more. Patient refused 2022 Within the past 12 months, t he food you bought just didn't last and you didn't have money to get more. Sometimes true Estimated Date of Delivery Comme nts Yes 01/23/2024 Based on Ultraso und Sex Assigned at Date Recorded Female 07/04/2022 10:38 AM EDT Job Start Date Occupation Industry Not on file Not on file Not on file documented as of this encounter Last Filed Vital Signs Vital Sign Reading Time Taken Comments Blood Pressure 98/62 08/06/2023 9:52 AM EDT Pulse - - Temperature - - Respiratory Rate - - Oxygen Saturation - - Inhaled Oxygen Concentration - - Weight 69 kg (152 lb 3.2 oz) 08/06/2023 9:52 AM EDT Height 160 cm (5' 3") 08/06/2023 9:52 AM EDT Body Mass Index 26.96 08/06/2023 9:52 AM EDT documented in this encounter Progress Notes * Sarah Maya PA-C - 08/06/2023 10:47 AM EDT CC: NOB HPI: Deb Rivera is a 32 year old female here for initial OB exam. JULIA 01/23/2024 by second trimester ultrasound completed today indicating 15w5d. LMP: unknown She is taking vitamins. She plans to breastfeed infant. Reviewed PMH, social hx, family hx, surgical hx, ob hx with patient. Pertinent positives: - history of c/s: x 2 now - history cannabis and tobacco use: not currently using either - depression: declines medication and counseling. Doing well given circumstance states [facility] good support [facility] Current symptoms: - Nausea: has Zofran using up to twice daily helps, heartburn at times, no using anything would be agreeable to TUMS - Having headache reports improved when she hydrates. Discussed Qnatal and Quad screen. Reviewed current medications with patient. Last pap smear 01/2022: NILM/-HPV She is considering adoption, but uncertain as of yet if this is what she will ultimately decided. Reports has resources she needs regarding this. Has also been in touch with assistance office regarding housing. Has current housing, reports untilMar2023 near due date. [place] Depression Scale: [place] Depression Scale Total: 15 [place] suicide question and score: Score of 3 = Yes, quite often. Score of 2 = Sometimes. Score of 1 = Hardly ever The thought of harming myself has occurred to me.: 0 OB History Para Term AB Living 6 3 3 2 3 SAB IAB Ectopic Multiple Live Births 1 1 3 # Outcome Date GA Lbr Soto/2nd Weight Sex Delivery Anes PTL Lv 6 Current 5 Term 01/16/23 39w0d 3.442 kg (7 lb 9.4 oz) M EPI N ROBIN 4 SAB 2020 3 IAB 2019 AB, [place], 1 2 Term 12/11/12 40w0d 2.58 kg (5 lb 11 oz) F ROBIN 1 Term 02/24/11 41w0d 2.835 kg (6 lb 4 oz) F CS-LTranv ROBIN Past Medical History: Diagnosis Date Cannabis abuse History of blood transfusion UNKNOWN UNITS BUT GIVEN WHEN SHE HAD C/S IN 2010 Tobacco use Varicella Social History Socioeconomic History Marital status: Occupational History Occupation: [employer] Occupation: EMT Tobacco Use Smoking status: Former Packs/day: 0.25 Years: 5.00 Pack years: 1.25 Types: Cigarettes Smokeless tobacco: Never Vaping Use Vaping Use: Never used Substance and Sexual Activity Alcohol use: Not Currently Comment: occ. Drug use: Not Currently Types: Marijuana Comment: medical MJ- using CBD oil with thc Sexual activity: Yes control/protection: Inserts Social History Narrative Recently moved her from [place], [place] from November 2020 Moved her for work Social Determinants of Health Food Insecurity: Food Insecurity Present Worried About Running Out of Food in the Last Year: Patient refused Ran Out of Food in the Last Year: Sometimes true Past Surgical History: Procedure Laterality Date DELIVERY 2010 DENTAL SURGERY PROCEDURE NEC 2019 Current Outpatient Medications Medication Sig Dispense Refill Plus 27-1 MG Oral Tablet Take 1 Tablet by mouth in the morning. 100 Tablet 3 Ondansetron HCl 4 MG Oral Tablet Take 1 Tablet by mouth every 12 hours as needed for Nausea. 30 Tablet 0 No current facility-administered medications for this visit. Review of patient's allergies indicates: No Known Allergies Family History Problem Relation Age of Onset Diabetes Mother No Known Problems Father No Known Problems Sister Asthma Brother Hypertension Grandmother (Maternal) No Known Problems Grandfather (Maternal) No Known Problems Grandmother (Paternal) No Known Problems Grandfather (Paternal) No Known Problems Daughter No Known Problems Daughter Denies family history of genetic conditions in patient's and FOB's families. ROS: General: no fevers, chills CV: no chest pain, SOB GI: no constipation, diarrhea, + nausea Breast: no masses, nipple discharge, + tenderness : no vaginal bleeding, unusual vaginal discharge, dysuria Psychological: no anxiety, depression, SI/HI PHYSICAL EXAM: please see physical Offset Second Press Operator Documentation Provider requested hydramatic specialist. Name of hydramatic specialist: Irwin James LPN ASSESSMENT/PLAN: Normal in multigravida (Primary) - Discussed timing of routine OB care - Recommended Covid and flu vaccine due to increased risk of severe disease in . - Offered genetic screening and explained that screening does not provide a definitive diagnosis. Patient will notify office if she would like to complete. - Recommended clean healthy diet and discussed foods/drinks to avoid in . Discussed recommend weight gain in . - Counseled on OTC measures to help alleviate nausea and advised to call if these are ineffective - Recommended daily vitamin. - Discussed labs as ordered and instructed patient to present to lab following appointment. - RTO in 4 weeks for LISA, PRN with concern - CULTURE, URINE, QUANTITATIVE - TYPE AND SCREEN; Future; Expected date: 08/06/2023 - RUBELLA IGG ANTIBODY; Future; Expected date: 08/06/2023 - HEPATITIS B SURFACE ANTIGEN; Future; Expected date: 08/06/2023 - HIV ANTIGEN & ANTIBODY SCREEN W/ CONFIRMATION; Future; Expected date: 08/06/2023 - CHLAMYDIA TRACHOMATIS AND NEISSERIA GONORRHOEAE, AMPLIFIED PROBE - CBC WITH WBC DIFFERENTIAL AND ANEMIA REFLEX WORKUP; Future; Expected date: 08/06/2023 - HEPATITIS C ANTIBODY SCREEN WITH PROGRESSION TO HEPATITIS C RNA QUANTITATIVE; Future; Expected date: 08/06/2023 - SYPHILIS ANTIBODY SCREEN WITH REFLEX TO RPR; Future; Expected date: 08/06/2023 - URINALYSIS, POINT OF CARE (ENTER/EDIT) Cannabis abuse Previous medical marijuana card. Denies current use. Recommended against use in and . Tobacco use Former use, declines current use. Recommended continued cessation in . Abnormal GTT (glucose tolerance test) Had abnormal 1 hour gtt in last , never completed 3 hour gtt. Pt agreeable to early glucose sceen in this . - 50-G GESTATIONAL GLUCOSE, 1 HOUR; Future; Expected date: 08/06/2023 Depression complicating , antepartum Declines assistance with medication or counseling. Reports good social support doing well. Has everything she feels she needs at this time. Recommend she contact office if an questions or concerns. History of x 2. She will need MD visit in this if desires another TOLAC. Follow Up: Return in about 4 weeks (around 09/03/2023), or if symptoms worsen or fail to improve, for Return visit. | For: Return visit | Check-out note: Anatomy with next visit Glucola with next visit Please arrive at lab Sarah Maya PA-C documented in this encounter Nursing Notes * Linsey Barr RN - 08/06/2023 9:53 AM EDT Patient here for NOB visit LMP unknown 15w5d JULIA 01/22/2023 + N/V +[place] blurry vision at times, resolves with hydration Taking Education given Labs pended Hx of GDM in last , had to check 3 hr glucose but couldn't do Glucola Patient here to enroll in the Healthy [facility] Plus program. Forms completed and intake assessment form completed. have you cut down with your smoking yes have you quit yes have you seen a paving stone installer no have you seen a 7th grade social studies teacher no = are you receiving counseling no have you received dental care during your yes are you enrolled in WIC yes do you receive food stamps or [place] assistance yes Linsey Barr RN documented in this encounter Plan of Treatment Upcoming Encounters Date Type Specialty Care Team Description 09/07/2023 Imaging Radiology 09/07/2023 Office Visit Gynecology Obstetrics Sarah Maya PA-C [address] [place] [address] Nurse [place]ino [facility] Return Luciana [address] [place] [address] 01/03/2024 Office [facility]at[facility] [address] [facility] [address] Pending Results Name Type Priority Associated Diagnoses Date /Time CULTURE, URINE, QUANTITATIVE Lab Routine Normal in multigravida 08/06/2023 11:20 AM EDT CHLAMYDIA TRACHOMATIS AND NEISSERIA GONORRHOEAE, AMPLIFIED PROBE Lab Routine Normal in multigravida 08/06/2023 11:20 AM EDT Scheduled Orders Name Type Priority Associated Diagnoses Orde r Schedule TYPE AND SCREEN Lab Routine Normal in multigravida Expected: 08/06/2023, Expires: 09/05/2024 RUBELLA IGG ANTIBODY Lab Routine Normal in multigravida Expected: 08/06/2023, Expires: 08/06/2024 HEPATITIS B SURFACE ANTIGEN Lab Routine Normal in multigravida Expected: 08/06/2023, Expires: 08/06/2024 HIV ANTIGEN & ANTIBODY SCREEN W/ CONFIRMATION Lab Routine Normal in multigravida Expected: 08/06/2023 (Approximate), Expires: 08/06/2024 CBC WITH WBC DIFFERENTIAL AND ANEMIA REFLEX WORKUP Lab Routine Normal in multigravida Expected: 08/06/2023 (Approximate), Expires: 08/06/2024 HEPATITIS C ANTIBODY SCREEN WITH PROGRESSION TO HEPATITIS C RNA QUANTITATIVE Lab Routine Normal in multigravida Expected: 08/06/2023 (Approximate), Expires: 08/06/2024 SYPHILIS ANTIBODY SCREEN WITH REFLEX TO RPR Lab Routine Normal in multigravida Expected: 08/06/2023 (Approximate), Expires: 08/06/2024 50-G GESTATIONAL GLUCOSE, 1 HOUR Lab Routine Abnormal GTT (glucose tolerance test) Expected: 08/06/2023, Expires: 08/06/2024 US PREG SINGLE/1ST GEST, 14 WEEKS OR LATER Medical Imaging Routine Normal in multigravida Expected: 08/20/2023, Expires: 09/05/2024 Health Maintenance Due Date Last Done Comments Hepatitis B (1 of 3 - 3-dose series) 1989 COVID-19 Vaccine (#1) 05/11/1990 Pneumococcal Vaccine: Pediatrics (0 to 5 Years) and At-Risk Patients (6 to 64 Years) (1 - PCV) 1995 HPV/Co-Test 2019 Depression Screening 01/27/2023 01/27/2022 Influenza Vaccine (FLU shot) (#1) 2023 Cervical Cancer Screening 01/31/2025 Pap Smear 01/31/2025 01/31/2022 DTaP,Tdap,and Td Vaccines (3 - Td or Tdap) 12/11/2032 12/11/2022, 01/27/2022 Hepatitis C Screening Completed 07/04/2022 , 07/04/2022, 07/04/2022, Additional history exists GARDASIL-HPV IMMUNIZATION SERIES Aged Out No longer eligible based on patient's age to complete this topic MENINGOCOCCAL (MENACTRA/MENVEO) Aged Out No longer eligible based on patient's age to complete this topic documented as of this encounter Medical Devices Not on filedocumented as of this encounter Procedures Procedure Name Priority Date/Time Associated Diagnosis Comments URINALYSIS, POINT OF CARE (ENTER/EDIT) Routine 08/06/2023 Normal in multigravida documented in this encounter Results * URINALYSIS, POINT OF CARE (ENTER/EDIT) (08/06/2023) Color, Urine Dark Yellow Yellow or Light Yellow Clarity, Urine Clear Clear Glucose, Urine Negative Negative mg/dL Bilirubin, Urine Negative Negative Ketone, Urine Negative Negative mg/dL Specific [place], Urine 1.025 1.003 - 1.030 Blood, Urine Negative Negative pH, Urine 7.0 5.0 - 7.5 units Protein, Urine Negative Negative mg/dL Urobilinogen, Urine 0.2 0.2 - 1.0 mg/dL Nitrite, Urine Negative Negative Esterase, Urine Negative Negative Urine 08/06/2023 Sarah Maya PA-C LAB POINT OF CARE TE ST ENTER/EDIT ORDERABLES documented in this encounter Visit Diagnoses Diagnosis Normal in multigravida- Primary Cannabis abuse Cannabis abuse, unspecified Tobacco use Tobacco use disorder Depression complicating , antepartum Mental disorders of mother, antepartum Abnormal GTT (glucose tolerance test) Impaired glucose tolerance test History of Other postprocedural status documented in this encounter Care Teams Seasoning Sprayer Relationship Specialty Start Date End Date Coretta June CRNP [address] [place] [address] PCP - General Nurse Practitioner 01/27/22 documented as of this encounter
--- OUTSIDE RECORDS SUMMARY | 2024-01-09 12:32 | External Medical Summary ---
Author Name Unknown Address Unknown Organization [id number][place] [place] [address] [place] [id number] Laboratory Report Ordering Provider Test Date Status NATHANIEL OVIEDO 08/06/2023 11:20:12 Final Observation Date Value Abnormality Reference (Units) Status Bacteria identified in Specimen by Culture 08/06/2023 11:20:12 No significant growth Final Test: Culture, Urine, Quanti tative
Specimen Source: Urine, Clean Catch
Specimen Type: Urine
Specimen Date: 08/06/2023 11:20 AM
Result Date: 08/07/2023 2:21 PM
Result Status: Final result
Resulting Lab: [facility] [place]
[address]
[place] [id number]

CULTURE

No significant growth

null Performing Location [facility] [place] [address] [place] [id number]
--- OUTSIDE RECORDS SUMMARY | 2024-01-09 12:32 | External Medical Summary | Summary of Care ---
Author Name Unknown Organization [facility] Address [address] [place] [address] Phone [phone] Care Team Providers Care Steam Trap Man Name Role Phone Coretta June Primary Care Provider Encounter Details Date Type Department Care Team Description 08/06/2023 Orders Only Outcomes Research Department [address] [place], [place] [id number] Marcela Hammonds [facility] [place] Research Other*[id number] Allergies No known active allergiesdocumented as of [...] of 08/06/2023) Active Problems Problem Noted Date Positive test 07/17/2023 Food insecurity 03/19/2023 Overview: Per [facility] Protocol Cannabis abuse 03/01/2023 Tobacco use documented as of this encounter [...] have money to get more. Sometimes true Sex Assigned at Date Recorded Female 07/04/2022 10:38 AM EDT Job Start Date Occupation Industry Not on file Not on file Not on file documented as of this encounter Plan of Treatment Upcoming Encounters Date Type Specialty Care Team Description 08/06/2023 Imaging Radiology 08/06/2023 Office Visit Gynecology Obstetrics Sarah Maya PA-C [address] [place] [address] [place], Nurse Medicine Assistant New [address] [place] [address] 01/03/2024 Office Visit Dermatology Sherie Cantrell MD [address] [facility] [place] [address] Scheduled Orders Name Type Priority Associated Diagnoses Orde r Schedule MYCODE SUBSEQUENT ADULT Lab Routine [facility] Research Other*[id number] Every 6 Months for 2 Occurrences starting 08/06/2023 until 08/25/2024 Health Maintenance Due Date Last Done Comments [...] as of this encounter Visit Diagnoses Diagnosis [facility] Research Other*[id number] documented in this encounter Care Teams Steam Trap Man Relationship Specialty Start Date End Date Coretta June CRNP [address] [place] [address] PCP - General Nurse Practitioner 01/27/22 documented as of this encounter
--- OUTSIDE RECORDS SUMMARY | 2024-01-09 12:32 | External Medical Summary ---
Author Name Unknown Address Unknown Organization K01:[facility] [place] [address] [place] [address] Laboratory Report Ordering Provider Test Date Status NATHANIEL OVIEDO 08/06/2023 11:20:12 Final Observation Date Value Abnormality Reference (Units ) Status Chlamydia trachomatis rRNA [Presence] in Specimen by DEYVI with probe detection 08/06/2023 11:20:12 Negative Negative Final No Chlamydia trachomatis det ected by ship pilot dispatcher-mediated nucleic acid amplification. Neisseria gonorrhoeae rRNA [ Presence] in Specimen by DEYVI with probe detection 08/06/2023 11:20:12 Negative Negative Final No Neisseria gonorrhoeae det ected by ship pilot dispatcher-mediated nucleic acid amplification. Performing Location [facility] [place] [address] [place] [address]
--- OUTSIDE RECORDS SUMMARY | 2024-01-09 12:32 | External Medical Summary | Summary of Care ---
Author Name Unknown Organization [facility] Address [address] [place] [address] Phone [phone] Care Team Providers Care Pest Control Worker Helper Name Role Phone Coretta June Primary Care Provider Reason for Referral * Evaluate & Treat - Unlimited Visits (Within 10 days (routine)) - Authorized Specialty Diagnoses / Procedures Referred By Camryn t Referred To Contact Obstetrics/Gynecology / Gynecology Obstetrics Diagnoses Positive test Morning sickness Coretta June CRNP [address] [place] [address] Referral ID Status Reason Start Date Expiration Date Visits Requested Visits Authorized [id number] Authorized Specialty Services Required 07/17/[phone] Question Answer Referral Priority Within 10 days (routine) What condition is the patient being seen for? Other Comments Reason for Visit * Reason Comments TOOK HOME TEST, 1 MONTH AGO, POSITIVE. Encounter Details Date Type Department Care Team Description 07/17/2023 Office Visit Family Practice [facility] [address] [place] [address] Coretta June CRNP [address] [place] [address] Positive test*; Tobacco use; Morning sickness Allergies No known active allergiesdocumented as of this encounter (statuses as of 07/17/2023) Medications Medication Sig Dispensed Refills Start Date End Date Status Plus 27-1 MG Oral TabletIndications:H /O section Take 1 Tablet by mouth in the morning. 100 Tablet 3 01/10/2023 Active Ondansetron HCl 4 MG Oral Tablet Take 1 Tablet by mouth every 12 hours as needed for Nausea. 30 Tablet 0 07/17/2023 Active Etonogestrel-Ethiny l Estradiol 0.12-0.015 MG/24HR Vaginal Ring (NuvaRing)Indicatio ns:Encounter for initial prescription of vaginal ring hormonal contraceptive Insert 1 ring into the vagina. Leave in for 21 days. Remove for 7 days, then replace with new ring. Repeat monthly. 3 Each 4 03/01/2023 Discontinued documented as of this encounter (statuses as of 07/17/2023) Active Problems Problem Noted Date Positive test 07/17/2023 Food insecurity 03/19/2023 Overview: Per [facility] Protocol Cannabis abuse 03/01/2023 Tobacco use documented as of this encounter (statuses as of 07/17/2023) Resolved Problems Problem Noted Date Resolved Date [...] issues Food insecurity 02/20/2022 09/28/2022 Overview: Per [facility] Protocol documented as of this encounter (statuses as of 07/17/2023) Immunizations Name Administration Dates Next Due TDAP [...] Sign Reading Time Taken Comments Blood Pressure 90/60 07/17/2023 11:39 AM EDT Pulse 72 07/17/2023 11:39 AM EDT Temperature - - Respiratory Rate - - Oxygen Saturation - - Inhaled Oxygen Concentration - - Weight 69.1 kg (152 lb 6 oz) 07/17/2023 11:39 AM EDT Height - - Body Mass Index 26.78 01/16/2023 9:34 AM EST documented in this encounter Progress Notes * DELMIS Elizondo - 07/17/2023 11:51 AM EDT Acute Family Medicine Visit CC: Chief Complaint Patient presents with TOOK HOME TEST, 1 MONTH AGO, POSITIVE. History of Present Illness: Deb Rivera is a 32 year old adult presenting today for missed periods. She is unsure when she starting missing periods. She is having unprotected sex. Temper is worse recently. Sleepy. She is having some nausea. Eating makes her better. Dilivery of baby was 01/16/2023. Social History Socioeconomic History Marital status: Spouse name: Not on file Number of children: Not on file Years of education: Not on file Highest education level: Not on file Occupational History Occupation: [employer] Occupation: EMT Tobacco Use Smoking status: Some Days Packs/day: 0.25 Years: 5.00 Pack years: 1.25 Types: Cigarettes Smokeless tobacco: Never Vaping Use Vaping Use: Never used Substance and Sexual Activity Alcohol use: Not Currently Comment: occ. Drug use: Yes Types: Marijuana Comment: medical MJ- using CBD oil with thc Sexual activity: Yes control/protection: Inserts Other Topics Concern Not on file Social History Narrative Recently moved her from [place], [place] from November 2020 Moved her for work Social Determinants of Health Financial Resource Strain: Not on file Food Insecurity: Food Insecurity Present Worried About Running Out of Food in the Last Year: Patient refused Ran Out of Food in the Last Year: Sometimes true Transportation Needs: Not on file Physical Activity: Not on file Stress: Not on file Social Connections: Not on file Intimate Partner Violence: Not on file Housing Stability: Not on file PMH: Past Medical History: Diagnosis Date Cannabis abuse History of blood transfusion UNKNOWN UNITS BUT GIVEN WHEN SHE HAD C/S IN 2010 Tobacco use Varicella Past Surgical History: Procedure Laterality Date DELIVERY 2010 DENTAL SURGERY PROCEDURE NEC 2019 Outpatient Medications Marked as Taking for the 07/17/23 encounter (Office Visit) with DELMIS Elizondo Medication Sig Plus 27-1 MG Oral Tablet Take 1 Tablet by mouth in the morning. Review of patient's allergies indicates: No Known Allergies Most Recent Immunizations Administered Date(s) Administered TDAP (age 10 and older)(Boostrix) 12/11/2022 Review of Systems: Review of Systems Constitutional: Positive for fatigue. Gastrointestinal: Positive for nausea. Negative for vomiting. Genitourinary: Positive for menstrual problem. Missed periods Psychiatric/Behavioral: Negative for sleep disturbance. Physical Exam: BP 90/60 | Pulse 72 | Wt 69.1 kg (152 lb 6 oz) | BMI 26.78 kg/m | BSA 1.76 m Physical Exam HENT: Head: Normocephalic. Cardiovascular: Rate and Rhythm: Normal rate and regular rhythm. Pulmonary: Effort: Pulmonary effort is normal. Breath sounds: Normal breath sounds. Abdominal: General: Bowel sounds are normal. Palpations: Abdomen is soft. Tenderness: There is no abdominal tenderness. Musculoskeletal: Cervical back: Normal range of motion. Neurological: General: No focal deficit present. Mental Status: She is alert and oriented to person, place, and time. Psychiatric: Mood and Affect: Mood normal. Behavior: Behavior normal. Thought Content: Thought content normal. Judgment: Judgment normal. Assessment and Plan: 1. Positive test Unknown LMP Recommend stop tobacco, etoh or drug use Take vitamine - URINE SCREEN, POINT OF CARE (ENTER/EDIT) - WINDOW DRESSER REFERRAL OP Reviewed resources 2. Tobacco use Recommend cessation 3. Morning sickness Add zofran - WINDOW DRESSER REFERRAL OP I have advised the patient to call our office incase of any worsening or new symptoms. I spent a total of 20-29 minutes (exact time 25 mins) on the date of service in preparation, delivery, and documentation of the care provided to Deb Rivera excluding any time spent in the performance of separately billed services. Al, MSN, DELMIS [facility] documented in this encounter Plan of Treatment Upcoming Encounters Date Type Specialty Care Team Description 08/06/2023 Imaging Radiology 08/06/2023 Office Visit Gynecology Obstetrics Sarah Maya PA-C [address] [facility] [place] [address] Gw, Nurse Nitrocellulose Maker New [address] [facility] [place] [address] 01/03/2024 Office Visit Dermatology Sherie Cantrell MD [address] [place] [id number] Scheduled Referrals Name Type Priority Associated Diagnoses Orde r Schedule WINDOW DRESSER REFERRAL OP Referral Within 10 days (routine) Positive test Morning sickness Ordered: 07/17/2023 Health Maintenance Due Date Last Done Comments Hepatitis B (1 of 3 - 3-dose series) 1989 COVID-19 Vaccine (#1) 05/11/1990 Pneumococcal Vaccine: Pediatrics (0 to 5 Years) and At-Risk Patients (6 to 64 Years) (1 - PCV) 1995 HPV/Co-Test 2019 Depression Screening, Annual for Pts 12 and Over 01/27/2023 01/27/2022 Influenza Vaccine (FLU shot) (#1) [...] Procedure Name Priority Date/Time Associated Diagnosis Comments URINE SCREEN, POINT OF CARE (ENTER/EDIT) Routine 07/17/2023 Positive test documented in this encounter Results * URINE SCREEN, POINT OF CARE (ENTER/EDIT) (07/17/2023) hCG Beta, Urine Positive Negative Procedural Control Valid? Yes Lot Number [id number] Expiration Date 05/23/24 Urine 07/17/2023 Coretta [facility] POINT OF C ARE TEST ENTER/EDIT ORDERABLES documented in this encounter Visit Diagnoses Diagnosis Positive test- Primary examination or test, positive result Tobacco use Tobacco use disorder Morning sickness Mild hyperemesis gravidarum, unspecified as to episode of care documented in this encounter Care Teams Pest Control Worker Helper Relationship Specialty Start Date End Date Coretta June CRNP [address] [place] [address] PCP - General Nurse Practitioner 01/27/22 documented as of this encounter"
--- OUTSIDE RECORDS SUMMARY | 2024-01-09 12:32 | External Medical Summary | Summary of Care ---
Author Name Unknown Organization [facility] Address [address] [place] [address] Phone [phone] Care Team Providers Care Equal Opportunity Representative Name Role Phone Coretta June Primary Care Provider Reason for Visit * Reason Comments [facility] New Encounter Details Date Type Department Care Team Description 08/06/2023 Office Visit Gynecology/Obstetrics [facility] [address] [place] [address] Sarah Maya PA-C [address] [place] [address] [place], Nurse [employer] New [address] [place] [address] Normal in multigravida*; Cannabis abuse; Tobacco use; [...] resolved Need for food assistance referred to [facility] and local [facility] 08/06/2023 Linsey Barr RN 08/06/2023 Positive test 07/17/2023 Food insecurity 03/19/2023 Overview: Per [facility] Protocol Cannabis abuse 03/01/2023 Tobacco use [...] issues Food insecurity 02/20/2022 09/28/2022 Overview: Per [facility] Protocol documented as of this encounter [...] given circumstance states has good support through [facility] resource [facility] Current symptoms: - Nausea: has Zofran using up to twice daily helps, heartburn at times, no using anything would be agreeable to TUMS Discussed Qnatal and Quad screen. Reviewed current medications with patient. Last pap smear 01/2022: NILM/-HPV She is considering adoption, but uncertain as of yet if this is what she will ultimately decided. Reports has resources she needs regarding this. Has also been in touch with assistance office regarding housing. Has current housing, reports untilMar2023 near due date. [place] Depression Scale: [place] Depression Scale Total: 15 [place] suicide question and score: Score of 3 [...] Social History Narrative Recently moved her from [place], [place] from [place] 2020 Moved her for [...] depression, SI/HI PHYSICAL EXAM: please see physical Production Team Advisor Documentation Provider requested decontamination technician. Name of decontamination technician: Irwin James LPN ASSESSMENT/PLAN: Normal in multigravida [...] you quit yes have you seen a farm machine operator no have you seen a social service worker no = are you receiving counseling no [...] Maya PA-C [address] [place] [address] Nurse Chalino [facility] [place] [address] [place] [address] 01/03/2024 Office Visit Dermatology Sherie Cantrell MD [address] [facility], [place] [address] Pending Results Name Type Priority Associated Diagnoses [...] Negative Ketone, Urine Negative Negative mg/dL Specific [place], Urine 1.025 1.003 - 1.030 Blood, Urine [...] status documented in this encounter Care Teams Equal Opportunity Representative Relationship Specialty Start Date End Date Coretta June CRNP [address] [place] [address] PCP - General Nurse Practitioner 01/27/22 documented as of this encounter
[2024-01-09] MEDS: DOCUSATE SODIUM 100 MG CAP PO SCH (20:27)
[2024-01-10 07:13] LABS: Hematocrit (blood only) 28.7 % (37.0-47.0); Hemoglobin 10.3 g/dl (12.0-16.0); Mean Corpuscular Hemoglobin 34.6 pg (25.0-34.0); Mean Corpuscular Hgb Conc 35.9 g/dL (32.0-36.0); Mean Corpuscular Volume 96.3 fL (80.0-100.0); Mean Platelet Volume 10.9 fL (9.4-12.4); Platelet Count 197 K/uL (130-400); RDW Coefficient of Variation 13.6 % (11.5-14.5); RDW Standard Deviation 47.9 fL (36.4-46.3); Red Blood Count 2.98 M/uL (4.20-5.40); White Blood Count 9.76 K/ul (4.8-10.8)
[2024-01-10] MEDS: PRENATAL VITAMIN 1 TAB PO SCH (07:53)
--- NOTE | 2024-01-10 11:00 | Obstetrical Progress Note ---
Date of Service January 10, 2024 Assessment & Plan (1) , delivered: Plan PPD 31 pt doing well d/c home tomorrow Results & Data Vital Signs (Past 12 Hours) Vital Signs Temp Pulse Pulse Resp BP Pulse Ox O2 Del Method 01/10/24 08:00 36.7 C 64 16 101/60 99 Room Air 01/10/24 03:00 36.8 C 82 18 99/67 L 98 Room Air 01/09/24 23:10 36.8 C 90 18 95/49 L 98 Room Air
[2024-01-10 11:57] LABS: HBSAG NON-REACTIVE (NON-REACTIVE)
[2024-01-10] MEDS: bisacodyL 5 MG TABEC PO SCH (20:51)
[2024-01-11 06:02] LABS: Hematocrit (blood only) 29.4 % (37.0-47.0); Hemoglobin 10.7 g/dl (12.0-16.0)
--- NOTE | 2024-01-11 08:06 | Obstetrical Progress Note ---
Date of Service January 11, 2024 Assessment & Plan (1) , delivered: PPD 32 pt doing well d/c home Results & Data Vital Signs (Past 12 Hours) Vital Signs Temp Pulse Resp BP Pulse Ox O2 Del Method 01/10/24 23:34 36.8 C 70 20 107/63 98 Room Air 01/10/24 20:45 36.9 C 71 18 105/58 L 97 Room Air
[2024-01-11 08:42] VITALS: BP 113/81; RESP 16; TEMP 98.4; O2SAT 100
[2024-01-11 10:39] VITALS: PULSE 64
[2024-01-11 11:47] LABS: Marijuana Quant, GCMS Urine 588 ng/mL (<5)
== END 2024-01-11 12:05 | disposition home or self-care (01) | DRG 807 ==
LOC: OPB 18:29 → 4S1 18:31 → 4E1 01-09 11:38
DX: Z37.0 Single live birth; O28.8 Other abnormal findings on antenatal screening of mother; O34.219 Maternal care for unspecified type scar from previous cesarean delivery; O99.334 Smoking (tobacco) complicating childbirth; O99.824 Streptococcus B carrier state complicating childbirth; Z3A.37 37 weeks gestation of pregnancy; O26.893 Other specified pregnancy related conditions, third trimester; O99.02 Anemia complicating childbirth; Z79.899 Other long term (current) drug therapy; O69.81X0 Labor and delivery complicated by cord around neck, without compression, not applicable or unspecified; F17.210 Nicotine dependence, cigarettes, uncomplicated